=== PATIENT | female | born 1935 | race Caucasian/White ===

== ENCOUNTER 2017-12-04 13:33 | Inpatient (IN) | payer MEDICARE, BC ==
[2017-12-04] MEDS ORDERED: NS 0.9% 1000 ML* 1,000 ML IV ONE (14:08)
[2017-12-04 14:32] LABS: ABS Basophils 0.1 10^3/ul (0-0.2); ABS Eosinophils 0.1 10^3/ul (0-0.6); ABS Lymphocytes 0.9 10^3/ul (1.0-4.8); ABS Monocytes 0.7 10^3/ul (0-0.8); ABS Neutrophils 7.9 10^3/ul (1.5-7.7); ABS Nucleated RBC 0 10^3/ul; Eosinophil % 1.2 % (0-6); Hematocrit 46 % (35-47); Hemoglobin 15.5 g/dl (12.0-16.0); Lymphocyte % 9.3 % (25-47); Mean Corpuscular HGB Conc 34 g/dl (31-36); Mean Corpuscular Hemoglobin 30 pg (27-31); Mean Corpuscular Volume 89 fL (80-97); Mean Platelet Volume 8 um3 (7.4-10.4); Nucleated Red Blood Cells % 0.1; Platelet Count 163 10^3/ul (150-450); Red Blood Count 5.19 10^6/ul (4.0-5.4); Red Cell Distribution Width 15 % (10.5-15); White Blood Count 9.7 10^3/ul (3.5-10.8)
--- NOTE | 2017-12-04 14:54 | RAD ---
HISTORY: Headache, fall COMPARISONS: None TECHNIQUE: Multiple contiguous axial CT scans were obtained of the head without intravenous contrast. FINDINGS: HEMORRHAGE/INFARCT: There is no hemorrhage or acute infarct. MASSES/SHIFT: There is no mass or shift. EXTRA-AXIAL SPACES: There are no extra-axial fluid collections. SULCI AND VENTRICLES: The sulci and ventricles are normal in size and position for the patient's stated age. CEREBRUM: There are no focal parenchymal abnormalities. BRAINSTEM: There are no focal parenchymal abnormalities. CEREBELLUM: There are no focal parenchymal abnormalities. VESSELS: The vessels are grossly normal. PARANASAL SINUSES: The paranasal sinuses are clear. ORBITS: The orbits are unremarkable. BONES AND SOFT TISSUE: No bone or soft tissue abnormalities are noted. OTHER: None IMPRESSION: NO ACUTE INTRACRANIAL PATHOLOGY.
--- NOTE | 2017-12-04 14:54 | RAD ---
HISTORY: Weakness COMPARISONS: None VIEWS: 1: frontal portable view of the chest at 2:49 PM FINDINGS: LINES AND TUBES: None. CARDIOMEDIASTINAL SILHOUETTE: The cardiomediastinal silhouette is normal for portable technique. PLEURA: The costophrenic angles are sharp. No pleural abnormalities are noted. LUNG PARENCHYMA: The lungs are clear. ABDOMEN: The upper abdomen is clear. There is no subphrenic gas. BONES AND SOFT TISSUES: No bone or soft tissue abnormalities are noted. IMPRESSION: NO ACTIVE CARDIOPULMONARY DISEASE.
[2017-12-04] MEDS ORDERED: Ondansetron INJ* 2 MG/ML VIAL IV PRN (17:06)
[2017-12-04] MEDS ORDERED: NS 0.9% 1000 ML* 1,000 ML IV SCH (17:15)
[2017-12-04] MEDS: Acetaminophen TAB* 325 MG PO PRN ×2 (17:48→22:05)
[2017-12-04] MEDS: Digoxin TAB* 0.25 MG PO SCH (17:48)
[2017-12-04] MEDS: Diltiazem TAB* 30 MG PO SCH ×3 (17:48→23:25)
[2017-12-04 18:22] LABS: Urine Appearance Cloudy; Urine Blood Negative (Negative); Urine Color Yellow; Urine Ketones Trace (Negative); Urine Protein Negative (Negative); Urine Specific Gravity 1.013 (1.010-1.030); Urine Urobilinogen Negative (Negative)
[2017-12-04] MEDS: cefTRIAXone(*) 1 GM in NS 0.9% 50 ML* 50 ML IVPB SCH (19:41)
--- NOTE | 2017-12-04 20:24 | HP ---
CC: Denise Falcon NP * HISTORY AND PHYSICAL: DATE OF ADMISSION: 12/04/17 PRIMARY CARE PROVIDER: Denise Falcon NP ATTENDING PHYSICIAN WHILE IN THE HOSPITAL: Abdirahman Malin MD * (report dictated by Juancho Méndez NP). CHIEF COMPLAINT: Fall. HISTORY OF PRESENT ILLNESS: Ms. Dixon is an 82-year-old female patient, carries a history of AFib, hypothyroidism, hyperlipidemia, dementia, and a history of COPD. She comes in to our ER today. She says she has not been feeling well over the last couple of days. The who lives with her says that for the last couple of weeks, she has not been acting herself in the sense that she has been complaining of having this pressure near the anabaptism. She has been feeling congested. She has had sore throat. She has been coughing, dry cough, off and on. She just really has not been feeling well. She has been in increasing weakness. She has felt nauseous off and on, and she has just been more weak. She saw her primary a couple of days ago. According to the patient , they thought maybe she had a viral illness and they had instructed her to come back if she was not feeling better in a week. She has had decreased appetite the last couple of days. There has been no shortness of breath or chest pain, but today she was getting up to go to the bathroom, she felt nauseous and she got lightheaded and she fell. She did not pass out. She did not faint. She remembers the event. She says she just got weak and she could not stand and she had fallen down. She denied having any abdominal discomfort. No chest pain, shortness of breath, or palpitations. She just says over the last few weeks, she has not been feeling all that well. She came in to the ED. She was evaluated. It was noted that she had an elevated troponin of 0.06 and we were asked to evaluate for admission. PAST MEDICAL HISTORY: Significant for: 1. AFib. 2. Hypothyroid. 3. Hyperlipidemia. 4. Dementia. 5. COPD. PAST SURGICAL HISTORY: She has had right total hip arthroplasty. MEDICATIONS: Home medications include: 1. Lasix 40 mg daily. 2. Potassium 10 mEq p.o. daily. 3. Zetia 10 mg daily. 4. Diltiazem CD 120 mg p.o. daily. 5. Digoxin 0.25 mg daily. 6. Xarelto 20 mg p.o. daily. 7. Synthroid 125 mcg daily. ALLERGIES TO MEDICATIONS: Include no known drug allergies. FAMILY HISTORY: Her mother lived to the age of 93 at old age. Father had history of emphysema. SOCIAL HISTORY: She is a former smoker. She does not drink alcohol. She resides with her . Surrogate decision maker is her granddaughter, Precious. REVIEW OF SYSTEMS: She does admit to having chills, but there is no documented fever. She is not having any significant weight change. No double vision. No ear discharge. There has been rhinorrhea. There has been sore throat. There has been no thyroid enlargement. Denied any chest pain. No orthopnea. No nocturnal dyspnea. There has been no abdominal pain. There was some sort of nausea today, but no vomiting. No dysuria, no frequency. There was no loss of consciousness. No pruritus and no skin ulcerations. Review of 14 systems completed, all others negative. PHYSICAL EXAMINATION GENERAL: At this time, Mrs. Dixon is an 82-year-old female patient, she is sitting in the hospital bed. She does not appear to be in any acute distress. VITAL SIGNS: Blood pressure 122/88, pulse of 100, respirations 20, O2 sat 92%, temperature 98.0. HEENT: Head: Atraumatic, normocephalic. Eyes: EOMs intact. Sclerae anicteric, not pale. Throat: Oral mucosa appears to be dry. No oropharyngeal erythema. NECK: Supple. LUNGS: Clear to auscultation bilaterally. No wheezes, rales, or rhonchi. HEART: Sounds S1 and S2. Irregularly irregular rate. No murmurs, rubs, or gallops. ABDOMEN: Soft, flat, nontender. Bowel sounds were present. EXTREMITIES: Pulses were 2+ throughout. She had no peripheral edema. She is able to move all 4 extremities with 5/5 strength. NEUROLOGIC: The patient is awake, alert, and oriented x3. Tongue midline. Residential Aide were equal. She had no gross focal deficits. SKIN: Intact. DIAGNOSTIC STUDIES/LAB DATA: WBC 9.7, RBC of 5.19, hemoglobin of 15.5, hematocrit 46, and platelet count of 163,000. Sodium was 134, potassium 4.2, chloride 100, bicarb 26, BUN 12, creatinine 0.71, glucose 89, lactate 1, calcium 9.4, mag 1.9, total bili 0.5, AST 22, ALT 17, alk phos 51. Troponin 0.06. Albumin of 2.5. TSH was 3.17. Toxicology was negative for alcohol. She did have a chest x-ray obtained today, impression: No active cardiopulmonary disease. There was a brain CT obtained today, impression: No acute intracranial pathology. She had an EKG obtained today, impression: No previous EKG was noted for comparison, but today's EKG does show atrial fibrillation, rate of 108. No ST elevations. She had T wave inversions. She did have flattened T waves in V6 only. Old medical records were reviewed. ASSESSMENT AND PLAN: Mrs. Dixon is an 82-year-old female patient coming into the emergency department today with complaints of weakness and fall, on evaluation today there was concern, because of this we were asked to evaluate for admission. She will be admitted under observation status for: 1. Weakness. Again, at this point, I suspect she certainly may have a viral illness or underlying urinary tract infection, so we will check urine, get a flu swab. For the time being, we will hydrate her and continue with supportive care. We will continue to monitor closely. Should she spike a fever, I will get blood cultures and put her on broad-spectrum antibiotics. I did order a Physical Therapy consult. 2. Atrial fibrillation. Heart rate right now is 120, but she did not take her medications today, so I am going to get her on diltiazem immediate release while she is here in the hospital and then when she goes home, she can go back on the IR formulation. We will continue her Xarelto. We will continue her digoxin as well. We will check a digoxin level. 3. Indeterminate troponin. Etiology is unclear. She is not having any chest pain. This could just be demand ischemia from a possible viral illness, but we will trend these. If they continue to elevate, we will get Cardiology involved and check an echo. 4. Hyperlipidemia. Continue her Zetia therapy. 5. Chronic obstructive pulmonary disease. I have ordered p.r.n. albuterol. 6. History of dementia and memory loss. Continue supportive care. 7. Hypothyroidism. Continue with Synthroid. 8. DVT prophylaxis. She is on Xarelto. 9. Code status: Full code. 10. Fluids, electrolytes, and nutrition. She can have a heart-healthy diet. TIME SPENT: Time spent on admission was approximately 60 minutes, greater than half the time was spent [id number] with the patient obtaining my history of physical; the other half time was spent going over the plan of care with the patient and implementing plan of care. I did discuss the plan of care with my attending, Dr. Malin; he is in agreement. JUANCHO MÉNDEZ, SUJEY [id number]/[facility] #: [id number]
[2017-12-05] MEDS: Acetaminophen TAB* 325 MG PO PRN ×2 (03:30→21:22)
[2017-12-05] MEDS: Levothyroxine TAB* 125 MCG TAB PO SCH (05:07)
[2017-12-05] MEDS: Diltiazem TAB* 30 MG PO SCH ×4 (05:08→23:31)
[2017-12-05] MEDS: Albuterol 2.5 MG/3 ML NEB.SOL* (0.083%) INH PRN ×3 (05:30→22:53)
[2017-12-05 05:37] LABS: ABS Basophils 0.1 10^3/ul (0-0.2); ABS Eosinophils 0.1 10^3/ul (0-0.6); ABS Lymphocytes 1.2 10^3/ul (1.0-4.8); ABS Monocytes 0.7 10^3/ul (0-0.8); ABS Neutrophils 6.5 10^3/ul (1.5-7.7); ABS Nucleated RBC 0 10^3/ul; Eosinophil % 1.7 % (0-6); Hematocrit 48 % (35-47); Hemoglobin 16.1 g/dl (12.0-16.0); Lymphocyte % 14.3 % (25-47); Mean Corpuscular HGB Conc 34 g/dl (31-36); Mean Corpuscular Hemoglobin 30 pg (27-31); Mean Corpuscular Volume 90 fL (80-97); Mean Platelet Volume 8 um3 (7.4-10.4); Nucleated Red Blood Cells % 0.1; Platelet Count 189 10^3/ul (150-450); Red Blood Count 5.34 10^6/ul (4.0-5.4); Red Cell Distribution Width 15 % (10.5-15); White Blood Count 8.6 10^3/ul (3.5-10.8)
[2017-12-05 05:48] LABS: EGFR Non-African American 89.1 (>60); INR 1.1 (0.77-1.02)
[2017-12-05] MEDS: Digoxin TAB* 0.25 MG PO SCH (08:23)
[2017-12-05] MEDS: Rivaroxaban TAB(*) 20 MG TAB PO SCH (08:24)
[2017-12-05] MEDS: Ezetimibe TAB* 10 MG PO SCH (08:24)
--- NOTE | 2017-12-05 11:59 | PN ---
Subjective Date of Service: 12/05/17 Interval History: Ms. Dixon states that she feels well initially. However, nursing staff note that she is requiring 2-3L NC to maintain a SpO2 > 90%. She denies shortness of breath at rest but became very dyspneic with exertion. She denies chest pain. She has had what she describes as a likely viral illnes with headache, congestion, sore throat and generally feeling unwell for the past week or so. She confirms a history of COPD but quit smoking 30 years ago. Objective Active Medications: Albuterol (Ventolin 2.5 Mg/3 Ml Neb.Kimi*) 2.5 mg INH Q2H PRN Digoxin (Lanoxin Tab*) 0.25 mg PO DAILY [facility] Diltiazem HCl (Cardizem Tab*) 30 mg PO Q6HR [facility] Ezetimibe (Zetia Tab*) 10 mg PO DAILY [facility] Ceftriaxone Sodium 1 gm/ (Sodium Chloride) 50 mls @ 200 mls/hr IVPB Q24H [facility] Levothyroxine Sodium (Synthroid Tab*) 125 mcg PO 0600 [facility] Ondansetron HCl (Zofran Inj*) 4 mg IV Q6H PRN Rivaroxaban (Xarelto(*)) 20 mg PO DAILY [facility] Vital Signs: Temp Pulse Resp BP Pulse Ox 97.3 F 81 18 125/54 91 12/05/17 08:00 12/05/17 08:27 12/05/17 08:27 12/05/17 08:00 12/05/17 08:27 Oxygen Devices in Use Now: Nasal Cannula Appearance: Elderly female lying in bed in NAD Eyes: No Scleral Icterus Ears/Nose/Mouth/Throat: Mucous Membranes Moist Neck: Trachea Midline Respiratory: Symmetrical Chest Expansion and Respiratory Effort, Clear to Auscultation, - - Diminished bilaterally Cardiovascular: NL Sounds; No Murmurs; No JVD, No Edema Abdominal: NL Sounds; No Tenderness; No Distention Extremities: No Edema Skin: No Rash or Ulcers Neurological: Alert and Oriented x 3, NL Muscle Strength and Tone Nutrition: Taking PO's Result Diagrams: 12/05/17 05:23 12/05/17 05:23 Microbiology and Other Data: . Assess/Plan/Problems-Billing Assessment: Ms. Dixon is an 82 yo female with a PMH of afin, HTN, dementia, and COPD who was admitted on 12/04/17 after a fall at home with finding of UTI, now with SOB requiring 3L NC. - Patient Problems (1) UTI (urinary tract infection) Comment: - UA positive, await cultures. - Continue ceftriaxone. (2) Fall Comment: - Suspect secondary to weakness due to viral illness, UTI, and COPD exacerbation. - No injury sustained. (3) COPD (chronic obstructive pulmonary disease) Comment: - Patient SOB with SpO2 84% on room air with ambulation. - Lungs diminished, suspect COPD exacerbation. - Start solumedrol and transition to prednisone in AM. (4) Elevated troponin Comment: - Trops unchanged at 0.06. - Patient denies chest pain, EKG without evidence of ischemia. Suspect demand ischemia in setting of acute illness. (5) Afib Comment: - Rate controlled. - Continue diltiazem and digoxin. - Continue xarelto. (6) Hypertension Comment: - SBP 120-130s. - Continue diltiazem. (7) Hyperlipidemia Comment: - Continue zetia. (8) Hypothyroidism Comment: - Continue levothyroxine. (9) DVT prophylaxis Comment: - Xarelto. (10) Full code status Comment: Status and Disposition: Change from OBV to inpatient with need for additional night in hospital. Anticipate discharge to home when medically stable.
[2017-12-05] MEDS: methylPREDNISolone 125 MG* 2 ML VIAL IV SCH ×2 (14:22→21:01)
--- NOTE | 2017-12-05 16:10 | ED ---
Denice Crouch Gabriel, scribed for Cesar Betancourt MD on 12/04/17 at 1407 . Adult Trauma - HPI Summary HPI Summary: This patient is a 82 year old F BIBA to [facility] s/p fall that occurred [employer]. The patient rates the pain 3/10 in severity. Patient reports near syncope, dizziness , and ROWE. Patient denies cough, sneezing, LOC, myalgia, CP, ABD pain, SOB, and hematuria. Patient states she was walking around and began to feel weak and dizzy, then fell. She has had a cold for 3 days and an artificial left hip for 71 years. - History of Current Complaint Chief Complaint: EDDizziness Stated Complaint: FALL Time Seen by Provider: 12/04/17 13:59 Hx Obtained From: Patient Mechanism of Injury: Fall Loss of Consciousness: no loss of consciousness Onset/Duration: Still Present Onset of Pain: Minutes Onset Severity: Mild Current Severity: Mild Pain Intensity: 3 Pain Scale Used: 0-10 Numeric Location: Head Associated Signs & Symptoms: Positive: Negative - cough, sneezing, LOC, myalgia , CP, ABD pain, SOB, and hematuria., Other: - near syncope, dizziness, and ROWE - Allergy/Home Medications Allergies/Adverse Reactions: Allergies Allergy/AdvReac Type Severity Reaction Status Date / Time No Known Allergies Allergy Verified 12/04/17 14:37 Home Medications: Home Medications Digoxin TAB* [Lanoxin TAB*] 0.25 mg PO DAILY 12/04/17 [History Confirmed ] Diltiazem CD CAP* [Cardizem CD CAP*] 120 mg PO DAILY 12/04/17 [History Confirmed 12/04/17] Ezetimibe TAB* [Zetia TAB*] 10 mg PO DAILY 12/04/17 [History Confirmed 12/04/17] Furosemide TAB* [Lasix TAB*] 40 mg PO DAILY 12/04/17 [History Confirmed 12/04/17 ] Levothyroxine TAB* [Synthroid TAB*] 125 mcg PO DAILY 12/04/17 [History Confirmed 12/04/17] Potassium Chlor TAB* [Klor Con ER TAB*] 10 meq PO DAILY 12/04/17 [History Confirmed 12/04/17] Rivaroxaban TAB(*) [Xarelto 10 mg (*)] 20 mg PO DAILY 12/04/17 [History Confirmed 12/04/17] PMH/Surg Hx/FS Hx/Imm Hx Endocrine/Hematology History: Reports: Hx Thyroid Disease Cardiovascular History: Reports: Hx Atrial Fibrillation History: Denies: Hx Acute Renal Failure, Hx Benign Prostatic Hyperplasia Musculoskeletal History: Denies: Hx Arthritis, Hx Rheumatoid Arthritis Sensory History: Reports: Hx Contacts or Glasses, Hx Vision Problem Denies: Hx Cataracts, Hx Hearing Aid Opthamlomology History: Reports: Hx Contacts or Glasses Denies: Hx Legally Blind EENT History: Denies: Hx Deafness, Hx Hearing Problem Neurological History: Denies: Hx CVA, Hx Dementia, Hx Developmental Delay - Surgical History Surgery Procedure, Year, and Place: hip replacement 1946 Infectious Disease History: No Infectious Disease History: Denies: Traveled Outside the [place] in Last 30 Days - Family History Known Family History: Positive: Diabetes Negative: Cardiac Disease, Hypertension, Renal Disease, Respiratory Disease, Seizure Disorder, Blood Disorder - Social History Alcohol Use: None Substance Use Type: Reports: None Smoking Status (MU): Unknown if Ever Smoked Review of Systems Negative: Fever, Chills Negative: Erythema Negative: Sore Throat Negative: Chest Pain Respiratory: Negative - sneezing Negative: Shortness Of Breath, Cough Negative: Abdominal Pain, Vomiting, Nausea Negative: dysuria, hematuria Negative: Myalgia, Edema Negative: Rash Neurological: Negative - LOC , Other - dizziness and near syncope Positive: Headache, Weakness All Other Systems Reviewed And Are Negative: Yes Physical Exam - Summary Physical Exam Summary: Constitutional: Well-developed, Well-nourished, Alert, Cooperative Skin: Warm, Dry HENT: No Racoons eyes; No battles sign; No abrasion; No hemotympanum; Dentition are smooth; No dental trauma; No trismus. Contusion on left frontal scalp Eyes: EOM normal, PERRL Neck: Trachea is midline. No stridor; No JVD; No step off; No posterior cervical spine tenderness Cardio: Rhythm regular, rate normal Heart sounds normal; Intact distal pulses; The pedal pulses are 2+ and symmetric. Radial pulses are 2+ and symmetric. Pulmonary/Chest wall: Effort normal; Breath sounds normal; Equal chest rise; No flail segment; No rib tenderness; No sternal tenderness Abd: Soft, Appearance normal. No distension; No tenderness; No palpable pulsatile mass; No Cullens sign; No Lockwood-Turners sign Musculoskeletal: Full ROM and no tenderness at hips, ankles, shoulders, elbows and knees; No joint swelling; No vertebral body tenderness; No paraspinal tenderness; No step off or deformity of the spine; Pelvis is stable to lateral compression and rock Neuro: Alert, Oriented x3, Strength 5/5 all extremities. : No blood at urethral meatus Psych: Mood and affect Normal Triage Information Reviewed: Yes Vital Signs On Initial Exam: Initial Vitals Temp Pulse Resp BP Pulse Ox 98.5 F 77 20 107/71 92 12/04/17 13:55 12/04/17 13:55 12/04/17 13:55 12/04/17 13:55 12/04/17 13:55 Vital Signs Reviewed: Yes - Parul Coma Scale Coma Scale Total: 15 Diagnostics - Vital Signs Vital Signs Temp Pulse Resp BP Pulse Ox 12/04/17 13:55 98.5 F 77 20 107/71 92 - Laboratory Result Diagrams: 12/04/17 14:23 12/04/17 14:23 Lab Statement: Any lab studies that have been ordered have been reviewed, and results considered in the medical decision making process. - Radiology CXR Radiology Interpretation Completed By: Radiologist - NO ACTIVE CARDIOPULMONARY DISEASE. ED physician has reviewed this radiology report. - CT CT Brain CT Interpretation Completed By: Radiologist - NO ACUTE INTRACRANIAL PATHOLOGY. ED physician has reviewed this radiology report. 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 The patient rates the pain 3/10 in severity. Patient reports near syncope, dizziness, and ROWE. Patient denies cough, sneezing, LOC, myalgia, CP, ABD pain, SOB, and hematuria. Patient states she was walking around and began to feel weak and dizzy, then fell. She has had a cold for 3 days and an artificial left hip for 71 years. CXR reveals, per radiologist, NO ACTIVE CARDIOPULMONARY DISEASE. CT Brain reveals, per radiologist, NO ACUTE INTRACRANIAL PATHOLOGY. An EKG reveals atrial fibrillation. Test results with no significant abnormalities except for troponin of .06. In the ED course the patient was given IV fluids. We discussed patient care with Dr. Malin and they accepted the patient for admission. Patient will be admitted. The patient is agreeable with this plan. - Diagnoses Provider Diagnoses: Syncope, near, Closed head injury, Elevated troponin - Physician Notifications Discussed Care Of Patient With: Oscar Malin Time Discussed With Above Provider: 13:15 Instructed by Provider To: Admit As Inpatient Discharge - Discharge Plan Condition: Fair Disposition: ADMITTED TO [facility] The documentation as recorded by the Denice amador Gabriel accurately reflects the service I personally performed and the decisions made by , Cesar Betancourt MD.
[2017-12-05] MEDS: cefTRIAXone(*) 1 GM in NS 0.9% 50 ML* 50 ML IVPB SCH (21:01)
[2017-12-06] MEDS: Diltiazem TAB* 30 MG PO SCH ×2 (05:17→12:12)
[2017-12-06] MEDS: Levothyroxine TAB* 125 MCG TAB PO SCH (05:17)
[2017-12-06] MEDS: Rivaroxaban TAB(*) 20 MG TAB PO SCH (07:45)
[2017-12-06] MEDS: Ezetimibe TAB* 10 MG PO SCH (07:45)
[2017-12-06] MEDS: Digoxin TAB* 0.25 MG PO SCH (07:45)
[2017-12-06] MEDS: Albuterol 2.5 MG/3 ML NEB.SOL* (0.083%) INH PRN (07:50)
[2017-12-06] MEDS ORDERED: predniSONE TAB* 20 MG PO SCH (09:00)
[2017-12-06 11:51] VITALS: BP 142/74
--- NOTE | 2017-12-06 13:18 | PN ---
Progress Note - Progress Note Date of Service: 12/06/17 Note: Time spent on discharge 45 minutes.
--- NOTE | 2017-12-06 13:18 | PN ---
Progress Note - Progress Note Date of Service: 12/06/17 Note: O2 sat 86=87% on RA by me.
--- NOTE | 2017-12-06 13:22 | DCNOTE ---
Subjective Date of Service: 12/06/17 Interval History: No c/o, anxious to go home. Objective Active Medications: Acetaminophen (Tylenol Tab*) 650 mg PO Q4H PRN PRN Reason: FEVER/PAIN Last Admin: 12/05/17 21:22 Dose: 650 mg Albuterol (Ventolin 2.5 Mg/3 Ml Neb.Kimi*) 2.5 mg INH Q2H PRN PRN Reason: SOB/WHEEZING Last Admin: 12/06/17 07:50 Dose: 2.5 mg Digoxin (Lanoxin Tab*) 0.25 mg PO DAILY [facility] Last Admin: 12/06/17 07:45 Dose: 0.25 mg Diltiazem HCl (Cardizem Tab*) 30 mg PO Q6HR [facility] Last Admin: 12/06/17 12:12 Dose: 30 mg Ezetimibe (Zetia Tab*) 10 mg PO DAILY [facility] Last Admin: 12/06/17 07:45 Dose: 10 mg Levothyroxine Sodium (Synthroid Tab*) 125 mcg PO 0600 [facility] Last Admin: 12/06/17 05:17 Dose: 125 mcg Ondansetron HCl (Zofran Inj*) 4 mg IV Q6H PRN PRN Reason: NAUSEA Prednisone (Deltasone Tab*) 40 mg PO DAILY [facility] Last Admin: 12/06/17 07:45 Dose: 40 mg Rivaroxaban (Xarelto(*)) 20 mg PO DAILY [facility] Last Admin: 12/06/17 07:45 Dose: 20 mg Vital Signs - 8 hr 12/06/17 12/06/17 12/06/17 07:39 07:45 08:00 Temperature 97.8 F Pulse Rate 99 99 Respiratory 26 24 Rate Blood Pressure 146/75 (mmHg) O2 Sat by Pulse 95 Oximetry 12/06/17 11:31 Temperature 97.7 F Pulse Rate 94 Respiratory 20 Rate Blood Pressure 142/74 (mmHg) O2 Sat by Pulse 95 Oximetry Oxygen Devices in Use Now: None Appearance: Alert, partly up in bed. In good spirits. Looks comfortable. Neck: NL Appearance and Movements; NL JVP, No Thyroid Enlargement, Masses Respiratory: Symmetrical Chest Expansion and Respiratory Effort, Clear to Auscultation, Clear to Percussion Extremities: No Edema, No Clubbing, Cyanosis, - Skin: No Rash or Ulcers, No Nodules or Sclerosis, - Neurological: Alert and Oriented x 3, NL Sensation Result Diagrams: 12/05/17 05:23 12/05/17 05:23 Microbiology and Other Data: . Assess/Plan/Problems-Billing Assessment: Ms. Dixon is an 82 yo female with a PMH of afin, HTN, dementia, and COPD who was admitted on 12/04/17 after a fall at home with finding of UTI, now with SOB requiring 3L NC. - Patient Problems (1) COPD (chronic obstructive pulmonary disease) Current Visit: Yes Status: Acute Code(s): J44.9 - CHRONIC OBSTRUCTIVE PULMONARY DISEASE, UNSPECIFIED SNOMED Code(s): 02517976 Comment: O2 sat 86-87% on RA by me. Finish prednison taper at home. Fup her PCP. (2) Fall Current Visit: Yes Status: Acute Comment: - Suspect secondary to weakness due to viral illness, UTI, and COPD exacerbation. - No injury sustained. Multiple ecchymoses noted. (3) Hypothyroidism Current Visit: Yes Status: Acute Code(s): E03.9 - HYPOTHYROIDISM, UNSPECIFIED SNOMED Code(s): 76239508 Comment: - Continue levothyroxine. TSH wnl 12/04/17. (4) Hypertension Current Visit: Yes Status: Acute Code(s): I10 - ESSENTIAL (PRIMARY) HYPERTENSION SNOMED Code(s): 80667419 Comment: - SBP 120-130s. - Continue diltiazem. (5) Afib Current Visit: Yes Status: Acute Code(s): I48.91 - UNSPECIFIED ATRIAL FIBRILLATION SNOMED Code(s): 83856020 Comment: - Rate controlled. - Continue diltiazem and digoxin. - Continue xarelto. (6) UTI (urinary tract infection) Current Visit: Yes Status: Acute Comment: C&S mixed zo. No further antibiotics for now. Status and Disposition: Discharge now. Fup Dr. Falcon.
--- NOTE | 2017-12-07 01:28 | DS ---
CC: Denise Falcon NP DISCHARGE SUMMARY: DATE OF ADMISSION: 12/05/17 DATE OF DISCHARGE: 12/06/17 HISTORY OF PRESENT ILLNESS: This 82-year-old woman presented after a fall. She had been feeling danial ewhat ill for a few days. She had a sore throat and had some cough. She is a little weak. She got up to go to the bathroom and felt nauseated and lightheaded and fell. She did not lose consciousness and remembers falling. There is no chest pain, shortness of breath or palpitations. She was admitted to a monitored bed. I note she has persistent atrial fibrillation and is rate contr olled. She is anticoagulated for this. She was thought to possibly have a urinary tract infection and was given antibiotics. The culture ca me back mixed zo and I have stopped her antibiotics. She felt well; however, she was placed on pre dnisone for COPD. At the day of discharge, she was 86% to 87% O2 saturation on room air. She will h ave home oxygen arranged. FINAL DIAGNOSES: 1. Chronic obstructive pulmonary disease. 2. Fall. 3. Hypothyroidism. 4. Hypertension. 5. Atrial fibrillation. DISCHARGE MEDICATIONS: 1. Prednisone 10 mg taper from 3 to 0 over 3 days. 2. Ezetimibe 10 mg daily. 3. Diltiazem CD 120 mg daily. 4. Digoxin 0.25 mg daily. 5. Rivaroxaban 20 mg daily. 6. Levothyroxine 125 mcg every day. I have stopped the patient's potassium and furosemide prescriptions. [id number]/[facility] #: [id number]
== END 2017-12-06 15:45 | disposition home or self-care (01) | DRG 192 ==
LOC: ED 13:33 → MEDTELE 15:49 → OBSVTOIN 12-05 14:43
PROVIDERS: ADMIT Internal Medicine; ATTEND Internal Medicine
DX: J44.1 Chronic obstructive pulmonary disease with (acute) exacerbation (principal); I48.91 Unspecified atrial fibrillation; F03.90 Unspecified dementia, unspecified severity, without behavioral disturbance, psychotic disturbance, mood disturbance, and anxiety; E78.5 Hyperlipidemia, unspecified; I10 Essential (primary) hypertension; E03.9 Hypothyroidism, unspecified; Z96.641 Presence of right artificial hip joint; Z82.5 Family history of asthma and other chronic lower respiratory diseases; Z83.3 Family history of diabetes mellitus; Z87.891 Personal history of nicotine dependence
CPT/HCPCS: 36415; 70450; 71045; 80048; 80053; 80162; 80320; 81003; 81015; 83605; 83735; 84443; 84484; 85025; 85610; 87086; 87502; 93005; 94640; 94760; A9270-GY; G0378; G0480; G8978-GP-CI; G8979-GP-CH; G8980-GP-CH; J0696; J2930; J7512

== ENCOUNTER 2017-12-08 08:11 | Observation (INO) | payer MEDICARE, BC ==
[2017-12-08 10:11] LABS: ABS Basophils 0 10^3/ul (0-0.2); ABS Eosinophils 0.1 10^3/ul (0-0.6); ABS Lymphocytes 1.1 10^3/ul (1.0-4.8); ABS Neutrophils 8.8 10^3/ul (1.5-7.7); ABS Nucleated RBC 0.1 10^3/ul; Eosinophil % 0.5 % (0-6); Hematocrit 49 % (35-47); Hemoglobin 16.4 g/dl (12.0-16.0); Lymphocyte % 9.9 % (25-47); Mean Corpuscular HGB Conc 34 g/dl (31-36); Mean Corpuscular Hemoglobin 30 pg (27-31); Mean Corpuscular Volume 89 fL (80-97); Mean Platelet Volume 8 um3 (7.4-10.4); Nucleated Red Blood Cells % 0.7; Platelet Count 199 10^3/ul (150-450); Red Blood Count 5.47 10^6/ul (4.0-5.4); Red Cell Distribution Width 15 % (10.5-15); White Blood Count 10.9 10^3/ul (3.5-10.8)
--- NOTE | 2017-12-08 10:20 | RAD ---
INDICATION: Weakness COMPARISON: December 04, 2017 TECHNIQUE: Noncontrast axial source images were acquired from the skull base to the vertex. FINDINGS: Ventricles/sulci: There is mild age-related cortical atrophy with compensatory dilatation of the CSF spaces. Brain parenchyma: There is mild age-related periventricular and subcortical white matter change compatible with chronic ischemia. Intracranial hemorrhage:None. Extra-axial spaces: There are no abnormal extra axial fluid collections or evidence of extra-axial mass. Calvarium: There is no calvarial fracture or other calvarial abnormality. Scalp: There is no evidence of scalp or extracalvarial soft tissue abnormality. Paranasal sinuses/mastoid: The paranasal sinuses and mastoid air cells are clear. Other: None. IMPRESSION: No acute intracranial findings or interval change since the recent December 04, 2017 examination
[2017-12-08 10:26] LABS: INR 1.73 (0.77-1.02)
[2017-12-08 10:30] LABS: EGFR Non-African American 69.8 (>60)
[2017-12-08] MEDS ORDERED: Iohexol 350* (CONTRAST) 500 ML MDV IV ONE (10:49)
[2017-12-08] MEDS ORDERED: NS 0.9% 1000 ML* 1,000 ML IV ONE (10:53)
[2017-12-08] MEDS ORDERED: Rivaroxaban TAB(*) 20 MG TAB PO SCH (12:00)
[2017-12-08] MEDS ORDERED: Digoxin TAB* 0.25 MG PO SCH (12:00)
[2017-12-08] MEDS ORDERED: Furosemide TAB* 40 MG PO SCH (12:00)
--- NOTE | 2017-12-08 12:18 | RAD ---
INDICATION: Left upper extremity weakness. COMPARISON: Versus new prior CT of the brain from December 08, 2017. TECHNIQUE: A CT angiogram of the head and neck was performed following intravenous injection of 80 ml of Omnipaque 350 nonionic contrast. Contiguous axial sections were obtained from the thoracic inlet through the skull vertex. Images were reconstructed in the coronal and sagittal planes and in a 3-D volume rendered format. The distal cervical internal carotid artery diameter is used as the denominator for stenosis measurement. FINDINGS: RIGHT CAROTID: The common and internal carotid arteries appear patent without evidence for hemodynamically significant stenosis. There is mild calcific plaque present within the carotid bulb and proximal internal carotid artery. LEFT CAROTID: The common and internal carotid arteries appear patent without evidence for hemodynamically significant stenosis. There is mild calcific plaque present within the carotid bulb and proximal internal carotid artery. VERTEBRALS: The vertebral arteries appear codominant without evidence for high-grade stenosis. CTA BRAIN: The internal carotid, anterior and middle cerebral arteries appear patent without evidence for high-grade stenosis or occlusion. The vertebral, basilar and posterior cerebral arteries appear patent without evidence for high-grade stenosis or occlusion. No gross focal perfusion abnormalities are seen. No aneurysm or vascular malformation is seen. NECK: No significant enlarged lymph nodes are seen within the neck. The thyroid, parotid and submandibular glands appear to be within normal limits. There is moderate centrilobular emphysematous change present. There is an infiltrate in the left upper lobe which is partially visualized on this study. There is a pleural-based density present medially in the left upper lobe which is partially calcified suspicious for a pleural-based mass. This measures 2.1 x 1.2 cm in size. There is moderate centrilobular emphysematous change present and a small right pleural effusion. The paranasal sinuses and mastoid air cells appear clear The results of this exam were called to the referring clinician. IMPRESSION: 1. NO EVIDENCE FOR HEMODYNAMICALLY SIGNIFICANT CAROTID STENOSIS. 2. NO EVIDENCE FOR LARGE VESSEL INTRACRANIAL THROMBUS. 3. LEFT UPPER LOBE INFILTRATE, POSSIBLE PLEURAL-BASED MASS IN THE LEFT UPPER LOBE AND SMALL RIGHT PLEURAL EFFUSION. RECOMMEND A CT OF THE CHEST FOR FURTHER EVALUATION. CPT II Codes: 3100F
[2017-12-08] MEDS ORDERED: Levofloxacin 750 MG IVPREMIX(* 750 MG/150 ML BAG IVPB ONE (12:19)
[2017-12-08 12:51] LABS: Urine Appearance Clear; Urine Blood Negative (Negative); Urine Color Yellow; Urine Ketones Negative (Negative); Urine Protein Negative (Negative); Urine Specific Gravity 1.035 (1.010-1.030); Urine Urobilinogen Negative (Negative)
--- NOTE | 2017-12-08 13:13 | RAD ---
HISTORY: Lung mass COMPARISONS: CTA of the head and neck dated December 08, 2017 TECHNIQUE: Multiple contiguous axial CT scans of the chest were obtained without intravenous contrast. Coronal and sagittal multiplanar reformations are also submitted for review. FINDINGS: NECK AND THYROID: The lower neck and thyroid are unremarkable. CHEST WALL: There is no lower cervical, axillary, or supraclavicular lymphadenopathy by size criteria. HEART AND PERICARDIUM: The heart is unremarkable. AORTA AND PULMONARY VASCULATURE: There is calcification of the thoracic aorta. The pulmonary vasculature is unremarkable. MEDIASTINUM: There is no mediastinal lymphadenopathy by size criteria. REBECCA: There is no hilar lymphadenopathy by size criteria. AIRWAY AND ESOPHAGUS: The airway is unremarkable, without endobronchial filling defect. The esophagus is grossly normal. LUNG PARENCHYMA: There is interlobular septal thickening with diffuse ground glass opacification of the left upper lobe. Additionally, there is a pleural-based mass posterior to the aortic arch on the left corresponding to the lesion noted on previous CT measuring 1.6 cm in size. Additionally, there is a left perihilar mass measuring approximately 4.4 x 3.9 cm transversely. There is centrilobular emphysematous change. PLEURA: Small left pleural effusion UPPER ABDOMEN: The upper abdomen is unremarkable. BONES AND SOFT TISSUES: Mild degenerative changes are noted OTHER: None. IMPRESSION: 1. THERE IS A 4.4 CENTIMETER PERIHILAR MASS ON THE LEFT CONCERNING FOR NEOPLASM. 2. A SECOND LESION IS NOTED POSTERIOR TO THE AORTIC ARCH MEASURING 1.6 CM. 3. THERE IS INTERLOBULAR SEPTAL THICKENING WITH GROUNDGLASS OPACIFICATION OF THE LEFT UPPER LUNG. WHILE THIS MAY REPRESENT AN INFECTIOUS OR INFLAMMATORY PROCESS, OR POSSIBLY ASYMMETRIC PULMONARY EDEMA, GIVEN THE PRESENCE OF A LUNG MASS, THIS MAY ALSO REPRESENT LYMPHANGITIC SPREAD OF TUMOR. 4. EMPHYSEMA. 5. SMALL LEFT PLEURAL EFFUSION.
[2017-12-08] MEDS: Atorvastatin* 40 MG TAB PO SCH ×2 (14:19→18:26)
[2017-12-08] MEDS: Diltiazem CD CAP* 120 MG PO SCH (14:19)
[2017-12-08] MEDS: Ezetimibe TAB* 10 MG PO SCH (16:00)
[2017-12-08] MEDS: Levothyroxine TAB* 125 MCG TAB PO SCH (16:00)
[2017-12-08] MEDS ORDERED: Metoprolol Tartrate IV* 1 MG/ML 5 ML VIAL IV PRN (16:31)
[2017-12-08] MEDS ORDERED: Potassium Chlor TAB* 20 MEQ TAB.ER PO ONE (16:33)
--- NOTE | 2017-12-08 17:29 | ED ---
George Crouch Angela, scribed for Junior zSymanski MD on 12/08/17 at 0852 . Neurological HPI - HPI Summary HPI Summary: This pt is a 82 y/o female presenting to [facility] c/o left hand weakness upon waking up this morning at approx 06:15. Pt notes she felt well yesterday prior to going to sleep. Pt reports she had a fall last week, was admitted to [facility] and was discharged 2 days ago. She states that since her discharge, pt does not feel as strong. Pt went from using her cane (prior to admission) to using a walker now (after discharge). - History of Current Complaint Chief Complaint: EDNeurologicalDeficit Stated Complaint: WEAKNESS IN LT HAND Time Seen by Provider: 12/08/17 08:34 Hx Obtained From: Patient Onset/Duration: Started hours ago, Still Present Current Severity: Moderate Neurological Deficit Location: LUE Pain Intensity: 0 Character: Weak - LUE Aggravating: Nothing Alleviating: Nothing Associated Signs and Symptoms: Positive: Weakness - generalized - Additional Pertinent History Primary Care Physician: RAMONITA - Allergy/Home Medications Allergies/Adverse Reactions: Allergies Allergy/AdvReac Type Severity Reaction Status Date / Time No Known Allergies Allergy Verified 12/08/17 08:46 Home Medications: Home Medications Furosemide TAB* [Lasix TAB*] 40 mg PO DAILY 12/08/17 [History Confirmed 12/08/17 ] Potassium Chlor TAB* [Klor Con ER TAB*] 10 meq PO DAILY 12/08/17 [History Confirmed 12/08/17] PMH/Surg Hx/FS Hx/Imm Hx Endocrine/Hematology History: Reports: Hx Thyroid Disease Cardiovascular History: Reports: Hx Atrial Fibrillation Comment Only: Other Cardiovascular Problems/Disorders - AFib Respiratory History: Reports: Hx Chronic Obstructive Pulmonary Disease (COPD) History: Denies: Hx Acute Renal Failure, Hx Benign Prostatic Hyperplasia Musculoskeletal History: Denies: Hx Arthritis, Hx Rheumatoid Arthritis Comment Only: Other Musculoskeletal History - Right leg 3 inches shorter than left leg Sensory History: Reports: Hx Contacts or Glasses, Hx Vision Problem Denies: Hx Cataracts, Hx Legally Blind, Hx Deafness, Hx Hearing Aid, Hx Hearing Problem Opthamlomology History: Reports: Hx Contacts or Glasses, Hx Vision Problem Denies: Hx Cataracts, Hx Legally Blind Neurological History: Denies: Hx CVA, Hx Dementia, Hx Developmental Delay - Surgical History Surgery Procedure, Year, and Place: hip replacement 1946 Infectious Disease History: No Infectious Disease History: Denies: Traveled Outside the [place] in Last 30 Days - Family History Known Family History: Positive: Diabetes Negative: Cardiac Disease, Hypertension, Renal Disease, Respiratory Disease, Seizure Disorder, Blood Disorder - Social History Alcohol Use: Rare Alcohol Amount: celebration Substance Use Type: Reports: None Smoking Status (MU): Former Smoker Review of Systems Negative: Fever, Chills ENT: Negative Cardiovascular: Negative Respiratory: Negative Gastrointestinal: Negative Neurological: Other - generalized weakness Positive: Weakness - left hand All Other Systems Reviewed And Are Negative: Yes Physical Exam - Summary Physical Exam Summary: VITAL SIGNS: Reviewed. GENERAL: Patient is a well-developed and nourished female who is lying comfortable in the stretcher. Patient is not in any acute respiratory distress. HEAD AND FACE: No signs of trauma. No ecchymosis, hematomas or skull depressions. No sinus tenderness. EYES: PERRLA, EOMI x 2, No injected conjunctiva, no nystagmus. EARS: Hearing grossly intact. Ear canals and tympanic membranes are within normal limits. MOUTH: Oropharynx within normal limits. NECK: Supple, trachea is midline, no adenopathy, no JVD, no carotid bruit, no c- spine tenderness, neck with full ROM. CHEST: Symmetric, no tenderness at palpation LUNGS: Clear to auscultation bilaterally. No wheezing or crackles. CVS: Regular rate and rhythm, S1 and S2 present, no murmurs or gallops appreciated. ABDOMEN: Soft, non-tender. No signs of distention. No rebound no guarding, and no masses palpated. Bowel sounds are normal. EXTREMITIES: FROM in all major joints, no edema, no cyanosis or clubbing. NEURO: Alert and oriented x 3. Speech is normal and follows commands. Pt has left upper extremity weakness. SKIN: Dry and warm Triage Information Reviewed: Yes Vital Signs On Initial Exam: Initial Vitals Temp Pulse Resp BP Pulse Ox 97.5 F 73 20 145/94 87 12/08/17 08:11 12/08/17 08:11 12/08/17 08:11 12/08/17 08:11 12/08/17 08:11 Vital Signs Reviewed: Yes - [place] Coma Scale Best Eye Response: 4 - Spontaneous Best Motor Response: 6 - Obeys Commands Best Verbal Response: 5 - Oriented Coma Scale Total: 15 Diagnostics - Vital Signs Vital Signs Temp Pulse Resp BP Pulse Ox 12/08/17 08:11 97.5 F 73 20 145/94 87 - Laboratory Lab Results: Lab Results 12/08/17 12/08/17 12/08/17 Range/Units 09:49 09:49 09:49 WBC 10.9 H (3.5-10.8) 10^3/ul RBC 5.47 H (4.0-5.4) 10^6/ul Hgb 16.4 H (12.0-16.0) g/dl Hct 49 H (35-47) % MCV 89 (80-97) fL MCH 30 (27-31) pg MCHC 34 (31-36) g/dl RDW 15 (10.5-15) % Plt Count 199 (150-450) 10^3/ul MPV 8 (7.4-10.4) um3 Neut % (Auto) 80.5 (38-83) % Lymph % (Auto) 9.9 L (25-47) % [place] % (Auto) 8.9 (1-9) % Eos % (Auto) 0.5 (0-6) % Baso % (Auto) 0.2 (0-2) % Absolute Neuts (auto) 8.8 H (1.5-7.7) 10^3/ul Absolute Lymphs (auto) 1.1 (1.0-4.8) 10^3/ul Absolute Monos (auto) 1.0 H (0-0.8) 10^3/ul Absolute Eos (auto) 0.1 (0-0.6) 10^3/ul Absolute Basos (auto) 0 (0-0.2) 10^3/ul Absolute Nucleated RBC 0.1 10^3/ul Nucleated RBC % 0.7 INR (Anticoag Therapy) 1.73 H (0.77-1.02) APTT 28.4 (26.0-36.3) seconds Sodium (133-145) mmol/L Potassium (3.5-5.0) mmol/L Chloride (101-111) mmol/L Carbon Dioxide (22-32) mmol/L Anion Gap (2-11) mmol/L BUN (6-24) mg/dL Creatinine (0.51-0.95) mg/dL Est GFR ( Amer) (>60) Est GFR (Non-Af Amer) (>60) BUN/Creatinine Ratio (8-20) Glucose (70-100) mg/dL Lactic Acid (0.5-2.0) mmol/L Calcium (8.6-10.3) mg/dL Magnesium Total Bilirubin (0.2-1.0) mg/dL AST (13-39) U/L ALT (7-52) U/L Alkaline Phosphatase (34-104) U/L Troponin I (<0.04) ng/mL Total Protein (6.4-8.9) g/dL Albumin (3.2-5.2) g/dL Globulin (2-4) g/dL Albumin/Globulin Ratio (1-3) Blood Type O Positive Antibody Screen Negative 12/08/17 12/08/17 Range/Units 09:49 09:49 WBC (3.5-10.8) 10^3/ul RBC (4.0-5.4) 10^6/ul Hgb (12.0-16.0) g/dl Hct (35-47) % MCV (80-97) fL MCH (27-31) pg MCHC (31-36) g/dl RDW (10.5-15) % Plt Count (150-450) 10^3/ul MPV (7.4-10.4) um3 Neut % (Auto) (38-83) % Lymph % (Auto) (25-47) % [place] % (Auto) (1-9) % Eos % (Auto) (0-6) % Baso % (Auto) (0-2) % Absolute Neuts (auto) (1.5-7.7) 10^3/ul Absolute Lymphs (auto) (1.0-4.8) 10^3/ul Absolute Monos (auto) (0-0.8) 10^3/ul Absolute Eos (auto) (0-0.6) 10^3/ul Absolute Basos (auto) (0-0.2) 10^3/ul Absolute Nucleated RBC 10^3/ul Nucleated RBC % INR (Anticoag Therapy) (0.77-1.02) APTT (26.0-36.3) seconds Sodium 139 (133-145) mmol/L Potassium 3.6 (3.5-5.0) mmol/L Chloride 99 L (101-111) mmol/L Carbon Dioxide 32 (22-32) mmol/L Anion Gap 8 (2-11) mmol/L BUN 25 H (6-24) mg/dL Creatinine 0.79 (0.51-0.95) mg/dL Est GFR ( Amer) 89.8 (>60) Est GFR (Non-Af Amer) 69.8 (>60) BUN/Creatinine Ratio 31.6 H (8-20) Glucose 74 (70-100) mg/dL Lactic Acid 1.1 (0.5-2.0) mmol/L Calcium 10.0 (8.6-10.3) mg/dL Magnesium Pending Total Bilirubin 0.90 (0.2-1.0) mg/dL AST 47 H (13-39) U/L ALT 49 (7-52) U/L Alkaline Phosphatase 56 (34-104) U/L Troponin I 0.11 H* (<0.04) ng/mL Total Protein 7.0 (6.4-8.9) g/dL Albumin 4.0 (3.2-5.2) g/dL Globulin 3.0 (2-4) g/dL Albumin/Globulin Ratio 1.3 (1-3) Blood Type Antibody Screen Result Diagrams: 12/08/17 09:49 12/08/17 09:49 Lab Statement: Any lab studies that have been ordered have been reviewed, and results considered in the medical decision making process. - CT Brain CT CT Interpretation: No Acute Changes - IMPRESSION: No acute intracranial findings or interval change since the recent December 04, [address] Szymanski has reviewed this radiology report. CT Interpretation Completed By: Radiologist CTA head/neck CT Interpretation: No Acute Changes - IMPRESSION: 1. No evidence for hemodynamically significant carotid stenosis. 2. No evidence for large vessel intracranial thrombus. 3. Left upper lobe infiltrate, possible pleural-based mass in the left upper lobe and small right pleural effusion. Recommend a CT of the chest for further evaluation. Dr. Szymanski has reviewed this radiology report. CT Interpretation Completed By: Radiologist - EKG 09:35 Cardiac Rate: NL EKG Rhythm: Atrial Fibrillation - at 76 bpm EKG Interpretation: No ST elevatoin. T wave inversion in II, III, V4, V6. EKG Comparison: No Significant Change - similar to prior EKG done on 12/05/17. NIH Scale - NIH Scale Level of Consciousness: Alert/Keenly Responsive Ask Patient the Month and His/Her Age: Both Correct Ask Pt to Open/Close Eyes and Packaging Associate/Release Non-Paretic Hand: Both Correctly Best Gaze (Only Horizontal Eye Movement): Normal Visual Field Testing: No Visual Loss Facial Paresis-Pt to Smile & Close Eyes or Grimace Symmetry: Normal/Symmetrical Motor Function - Right Arm: No Drift-Holds 10 Seconds Motor Function - Left Arm: Drifts LT 10 seconds Motor Function - Right Leg: No Drift-Holds 10 Seconds Motor Function - Left Leg: No Drift-Holds 10 Seconds Limb Ataxia-Must be out of Proportion to Weakness Present: Absent Sensory (Use Pinprick to Test Arms/Legs/Trunk/Face): Normal Best Language (Describe Picture, Name Items): No Aphasia Dysarthria (Read Several Words): Normal Extinction and Inattention: No Abnormality Total Score: 1 Course/Dx - Course Course Of Treatment: This pt is a 82 y/o female presenting to [facility] c/o left hand weakness upon waking up this morning at approx 06:15. Pt notes she felt well yesterday prior to going to sleep. Pt reports she had a fall last week, was admitted to [facility] and was discharged 2 days ago. She states that since her discharge, pt does not feel as strong. Pt went from using her cane (prior to admission) to using a walker now (after discharge). Test results show WBC of 10.9, H and H is elevated possibly secondary to dehydration. Troponin is elevated and will r/o ACS. Head CT shows no acute intracranial findings or interval change since the recent December 04, 2017 examination. Since the pt has a slight weakness in LUE, I discussed pt care with Dr. Titus, neurologist , who recommends the pt to be admitted for further work up and management. The pt is not a candidate for tPA since her symptoms started yesterday. I discussed the case with Dr. Malin, hospitalist, who accepted the pt for admission. Pt is hemodynamically stable, alert and oriented x3. - Diagnoses Provider Diagnoses: LUE weakness, rule out ischemic CVA, Elevated troponin - Physician Notifications Discussed Care Of Patient With: Miki Titus Time Discussed With Above Provider: 10:30 Instructed by Provider To: Other - I discussed pt care with Dr. Titus, neurologist, who recommends to order a CTA head and admit the pt for further management and work up. [10:37] I spoke with Dr. Malin, hospitalist, who has agreed to admit the pt. Discharge - Discharge Plan Condition: Stable Disposition: ADMITTED TO [facility] documentation as recorded by the George amador Angela accurately reflects the service I personally performed and the decisions made by me, Junior Szymanski MD.
--- NOTE | 2017-12-08 20:34 | RAD ---
Indication: Left upper extremity weakness. Image sequences: Sagittal and axial T1, axial T2, FLAIR, diffusion and susceptibility weighted images of the brain were obtained. Ventricular structures are midline. No midline shift is noted. There is no definite intracranial mass or hemorrhage. There are areas of restriction involving the right frontal lobe in the steinberg matter. There is also additional steinberg matter infarct involving the right posterior parietal lobe. These may represent embolic phenomenon. The left cerebral hemisphere demonstrates no restriction of diffusion. No susceptibility artifact is noted. Areas of white matter signal abnormality are noted consistent with chronic ischemic White matter change. Mastoid air cells and paranasal sinuses are otherwise unremarkable. The orbits are grossly unremarkable. IMPRESSION: Scattered cortical areas of restriction of diffusion is noted in the right frontal lobe in the subcortical white matter as well as in the right posterior parietal lobe. These are consistent with small acute infarct may represent small vessel disease or embolic phenomenon.
--- NOTE | 2017-12-08 22:34 | HP ---
HISTORY AND PHYSICAL: DATE OF ADMISSION: 12/08/17 ADMITTING PROVIDER: Cristiano Agee MD PRIMARY CARE PROVIDER: Denise Falcon NP CHIEF COMPLAINT: Left hand weakness. HISTORY OF PRESENT ILLNESS: Mrs. Dixon is an 82-year-old female PMH, paroxysmal atrial fibrillation on Xarelto for a number of years, hypothyroidism , hyperlipidemia, dementia, COPD, former smoker over 20-pack years, who woke up around 7 a.m. with the feeling that her left hand was weak and did not feel like she could parts inspector anything in it. She was last normal upon going to sleep the night prior. Notably, she was recently admitted between 12/04/17 and after a fall for which she said she had been hurrying to the bathroom, had a mechanical fall in the setting of episode of nausea and vomiting. She had been also complaining of a dry cough, generalized weakness, decreased appetite, sore throat, congestion and anabaptist pressure during that admission. She had a urinalysis, which showed 2+ leukocyte esterase, 3+ white blood cells and 1+ bacteria and had got 2 days of ceftriaxone, but the urine culture was contaminated and antibiotics were stopped after that time. The patient overall has been feeling slightly short of breath. Denies any chest pain. Denied any slurred speech or headaches or vision changes. She uses a cane at baseline to walk. She described that she had been having 3 weeks of severe headache pain prior to last admission. Denies any headache currently. She is somewhat poor historian when asked what she was attempting to waste picker this morning. Her partner, Hayde states that that this seemed like she could not move her left arm at all, but she does not attest to this history. She denies any numbness or tingling in any part of her body. Upon presentation to the [facility] emergency room, she had a CT of her head noncontrast, which demonstrated no acute intracranial process or interval change since scan 12/04/17. No hemorrhage seen or evidence of extraaxial masses. There was some mild age- related cortical atrophy with compensatory dilation of the CSF spaces. Neurologist, Dr. Titus was consulted by emergency room physician who recommended head and neck CTA, brain MRI. Head CTA was performed, which showed no evidence of hemodynamically significant carotid stenosis or large vessel intracranial thrombus. However, still note of a left upper lobe infiltrate possible pleural base mass in the left upper lobe and small right pleural effusions were seen. A 2.1 x 1.2 cm pleural based density. So, a CT of the chest noncontrast was performed. This demonstrated a 4.4 cm perihilar mass on the left concerning for neoplasm and the second 1.6 cm lesion posterior to the aortic arch. There was interlobular septal thickening with ground-glass opacification of the left upper lung potentially infectious versus inflammatory pulmonary edema, but given the presence of a lung mass, may also represent a lymphangitic spread of a tumor. Additionally, emphysema and a small left pleural effusion were obtained. The patient had been admitted to observation status for initially a TIA versus stroke rule out for her left hand weakness. Subsequently, a troponin resulted elevated 0.11 and on repeat 0.08. She had a slight leukocytosis at 10.9. She was afebrile, normotensive, heart rate initially in the 60s to 80s. The patient then upon the floor went into episode of rapid atrial fibrillation when walking to the bathroom and then settled down into the 100s to 110s heart rate. Given the lung mass, Dr. Del Rio of Pulmonology was consulted for thoughts on a potential biopsy strategy to make a diagnosis given suspicion of lung cancer. An MRI of the brain noncontrast is pending. The patient additionally describes losing approximately 10 pounds over the last 6 months. Denies fevers or chills or night sweats. PAST MEDICAL HISTORY: 1. Atrial fibrillation, paroxysmal. 2. Hypothyroidism. 3. Hyperlipidemia. 4. Dementia. 5. COPD; 20-pack year former smoker. PAST SURGICAL HISTORY: Status post right total hip arthroscopy secondary to osteomyelitis at age 14 with significant foreshortening of leg. MEDICATIONS: Home medications include: 1. Lasix 40 mg p.o. daily. 2. Prednisone recent taper 10 mg tablets left. 3. Xarelto 20 mg p.o. daily. 4. Synthroid 125 mcg p.o. daily. 5. Ezetimibe (Zetia) 10 mg p.o. daily. 6. Diltiazem 120 mg p.o. daily. 7. Digoxin 0.25 mg p.o. daily. 8. Potassium chloride 10 mEq p.o. daily. 9. Pantoprazole 40 mg p.o. daily. ALLERGIES: No known drug allergies. FAMILY HISTORY: Mother at age 95; dad age 63, history of COPD. SOCIAL HISTORY: Former smoker, quit 22 years ago, 20 years one pack a day. No alcohol use or other drug use. She is accompanied by Hayde who she refers to as her traffic incident management manager and living partner. Surrogate decision maker is her granddaughter , Precious. REVIEW OF SYSTEMS: Complete 14-point review of systems negative except as per HPI. PHYSICAL EXAMINATION GENERAL APPEARANCE: No acute distress. VITAL SIGNS: Temperature 97.4, pulse rate 70s to 80s, oxygen saturation initially 87% on room air improved to 93% to 95% on 2 L, blood pressure 145/94. HEENT: Normocephalic, ecchymosis surrounding the left eye and forehead. No scleral icterus. Extraocular motions intact. Pupils equally round and reactive to light. NECK: Supple. LUNGS: Clear to auscultation bilaterally with no wheezing, rales, or rhonchi. HEART: Regular rate and rhythm. No murmurs, rubs, or gallops. ABDOMEN: Soft, nontender, and nondistended. No peritoneal signs. No guarding. EXTREMITIES: Warm and well perfused. No peripheral edema. Right leg noticeably shorter than left. NEUROLOGIC: Commutator V Ring Assembler strength 5/5 on the right, 5-/5 on the left, biceps 5/5 bilaterally, hip flexion 5/5 bilaterally. Plantar and dorsal flexion 5/5 bilaterally. Finger abduction decreased on the left hand, wrist flexion and extension intact bilaterally. Cranial nerves II through XII intact. SKIN: No lesions, no rashes. DIAGNOSTIC STUDIES/LAB DATA: White count 10.9, hemoglobin 16.4, hematocrit 49 , platelets 199. INR 1.73. Sodium 139, potassium 3.6, chloride 99, carbon dioxide 32, BUN 25, creatinine 0.79, glucose 74, lactic acid 1.1, calcium 10.0. AST 47, ALT 49, alk phos 56. Troponin 0.11 followed by 0.08. Total protein 7.0, albumin 4.0. Urinalysis, specific gravity 1.035, negative leukocyte esterase, nitrites, blood. Toxicology, none detected. IMAGING: CT of the head, no acute intracranial findings. CTA of the head and neck, no hemodynamically significant carotid stenosis or large vessel intracranial thrombus, left upper lobe infiltrate, possible pleural based mass in the left upper lobe and small right pleural effusion. Recommended CT of the chest for further evaluation. CT of the chest noncontrast, 4.4-cm perihilar mass on the left concerning for neoplasm, second lesion noted posterior to the aortic arch measuring 1.6 cm. There is an interlobular septal thickening with ground-glass opacifications of the left upper lung while this may represent an infectious or inflammatory process or possibly asymptomatic pulmonary edema. Given the presence of a lung mass, this may also represent: 1. Lymphangitic spread of tumor. 2. Emphysema. 3. Small left pleural effusion. ASSESSMENT AND PLAN: Jesenia Dixon is an 82-year-old female with paroxysmal atrial fibrillation, on Xarelto, recent generalized weakness, severe headaches x3 weeks and 10-pound loss in the last 6 months, presenting with evidence of weakness in her finger abduction on the left hand, but preserved parts inspector strength. She says her exam has improved and she was initially admitted for concern for transient ischemic attack versus cerebrovascular accident and we will follow up with a brain MRI. There is no evidence seen on CT of the head noncontrast. Most pressing concern; however, now is this 4.4 cm perihilar mass with potential and ground-glass opacities that could represent lymphangitic spread of tumor and additional 1.6 cm lesion posterior to the aortic arch. We have consulted Dr. Del Rio of Pulmonology to help assist with biopsy strategy to confirm whether this indeed represents the suspected malignancy. We will consult with Hematology/Oncology in the morning once former plan is in place. The patient unfortunately already received CT contrast for the head and neck. We do not have full imaging of the abdomen and pelvis to see if there is additional suspicion for lymphadenopathy or masses. We will follow up with MRI of brain also to see if there is any evidence of suspicion for a metastasis. Appreciate recommendations of Dr. Titus of Neurology who is suspicious for more of a peripheral nerve lesion that could possibly also represent metastatic disease. At this point in time, we will focus on the imaging studies already ordered and followup with Pulmonology records for. For her paroxysmal atrial fibrillation on Xarelto, we will continue her digoxin 0.25 mg daily and diltiazem 120 mg extended release daily. We will continue telemetry checks. She did briefly go up into rapid ventricular rate, but quickly went down to the 110s. We will give additional IV diltiazem or metoprolol doses as needed and hold her Lasix 40 mg daily to give some room for the blood pressure in case the rapid ventricular rate is a bigger issue. We will replete lytes to magnesium above 2 and potassium above 4. We will hold off on her re-dosing her Xarelto until we can touch base with Dr. Del Rio about a possible biopsy plan and get an MRI later this afternoon hopefully to see if there is any other suspicion for stroke or mass and may have potential hemorrhagic component or risk to develop thereof. I broke the news to her about the masses in her lungs and she is predictably anxious about the potential diagnosis. We will start azithromycin given her history of COPD and hypoxic respiratory failure and slight leukocytosis. There is no bronchospasm. On exam, is moving air exchange well. This may be all related to potential lung cancer. She can eat a heart healthy diet likely we will place her at n.p.o. midnight, pending biopsy plan. She is a full code. [id number]/[facility] #: [id number] MTDD
--- NOTE | 2017-12-08 23:32 | CONS ---
CONSULTATION REPORT: DATE OF CONSULT: 12/08/17 PATIENT OF: Dr. Agee and Denise Falcon NP. HISTORY OF PRESENT ILLNESS: This 82-year-old woman who I am asked to evaluate for left hand weakness since this morning when she woke up. Of note, she was recently admitted on 12/04/17 for not feeling well and was feeling more weak in general with some nausea. She was admitted for 2 days' time and discharged to home. PAST MEDICAL HISTORY: Includes AFib, hypothyroidism, hyperlipidemia, mild dementia, and COPD. She also has a 40-pack year history of smoking, although has not smoked for more than 20 years. She is status post right total hip arthroplasty. MEDICATIONS: At home include: 1. Lasix 40 mg. 2. Potassium 20 mEq p.o. daily. 3. Zetia 10 mg daily. 4. Diltiazem CD 120 daily. 5. Digoxin 0.25 daily. 6. Xarelto 20 mg daily. 7. Synthroid 125 mcg daily. ALLERGIES: She has no known drug allergies. FAMILY HISTORY: Her father had emphysema. She does not drink alcohol. She lives with her . REVIEW OF SYSTEMS: She has had some chills, but no fever. No weight change. She has had one fall recently, but in general her bowels have been good and walks independently. She has had no numbness. PHYSICAL EXAM: Temperature 97.4, pulse 123, but has been 84, respiratory rate is 18, blood pressure 120/65. She is alert and oriented with normal speech and comprehension. She has ecchymosis over her left side of her face from her fall. Discs were sharp. Motor exam revealed normal tone and strength on the right side and left leg. She had 5/5 left drupal architect with finger abduction was 4+/5 as was finger and wrist extension. She had a slight pronator drift on the left. Sensation intact to light touch. Reflexes were 1 and equal downgoing toes. Chest: Clear. Cardiovascular: Regular rate and rhythm. Abdomen is soft with positive bowel sounds. DIAGNOSTIC STUDIES/LAB DATA: Her CT scan showed no acute findings, was unchanged from the prior CT scan done several days ago. There is some mild subcortical white matter changes. Her CTA was abnormal more significantly for left upper lobe infiltrate with possible pleural base mass. There is no significant stenosis seen. Her chest CT scan showed a 4.4 cm perihilar mass on the left. The second lesion was noted posterior to the aorta and there was septal thickening of the left upper lung possibly pulmonary edema or spread of tumor. She has emphysema and left pleural effusion. Labs include white count 10.9, hematocrit 49, platelets 199. INR 1.73, normal PTT. CMP was normal other than troponin 0.11, AST of 47, BUN of 25. Negative toxicology. Specific gravity of 1.035, otherwise UA negative. IMPRESSION AND PLAN: Jesenia should get the MRI scan which was ordered to screen for stroke, but her pattern of weakness in her left hand is somewhat atypical that her drupal architect is strong, but she has weakness in finger abduction and finger extension. I wonder whether she has a brachial plexus or cervical lesion possibly associated with her probable tumor. She may need further imaging including possibly left brachial plexus and cervical neck MRI scan with and without contrast along with the MRI scan for head with and without contrast that is depending on what overall plans are for this patient, but this would be the full beginning of neurological workup for her symptoms. Thank you for sharing her case. [id number]/[facility] #: [id number] EDWIGE
[2017-12-08] MEDS: Aspirin Low Dose CHEW TAB* 81 MG PO SCH (23:46)
--- NOTE | 2017-12-09 00:22 | CONS ---
PULMONARY CONSULTATION REPORT: DATE OF CONSULTATION: 12/08/17 CONSULTATION REQUESTED BY: Dr. Agee. HISTORY OF PRESENT ILLNESS: The patient is an 82-year-old female, former smoker , who recently moved to the area, 8 months ago, who presents with worsening shortness of breath. The patient was recently discharged from the hospital on Friday with O2 at 2 L per minute. Her O2 sats were around 87% on arrival in the emergency room. The patient presented for evaluation of left hand weakness that she noticed this morning. The patient was found to be in atrial fibrillation with rate controlled at 67 to 76. The patient was recently hospitalized a few days ago when she presented after a fall. The patient denied significant shortness of breath. The patient reports mild intermittent cough. The patient reports weakness. The patient denies history of recurrent bronchitis. The patient was also found to be hypoxemic during recent hospitalization and was discharged home on O2 supplementation. She has history of COPD. She was discharged on tapering doses of prednisone. The patient had CTA of the brain, which showed no evidence of carotid stenosis or intracranial thrombosis. She was noted to have left upper lobe infiltrate and small right pleural effusion and a CT scan was recommended for further evaluation. The patient had chest x-ray on 12/04/17, which was personally reviewed by me. The patient did not have evidence of any acute process that was clearly obvious at that time. CT of the chest done today was also personally reviewed by me - the patient noted to have 4.4 cm perihilar mass on the left side with possible narrowing of left lower lobe bronchus. The patient also has evidence of interlobular septal thickening and ground glass opacification in the left upper lobe. The patient also noted to have a pleural-based mass posterior to the aortic arch on the left lung measuring 1.6 cm. The patient also noted to have centrilobular emphysematous changes and small left pleural effusion. The patient was seen and examined at bedside. The patient denies significant shortness of breath at this time. She is more concerned about her weakness. Neurology was consulted for her neurological issues. PAST MEDICAL HISTORY: 1. COPD. 2. Atrial fibrillation. 3. Hypothyroid. 4. Hyperlipidemia. 5. Dementia. PAST SURGICAL HISTORY: Right total hip arthroplasty. MEDICATIONS: 1. Lasix. 2. Potassium. 3. Zetia. 4. Diltiazem. 5. Digoxin. 6. Xarelto. 7. Prednisone taper, which she completed. 8. Synthroid. ALLERGIES: No known drug allergies. FAMILY HISTORY: Mother lived to . Father had emphysema. SOCIAL HISTORY: Former smoker, quit recently. No alcohol or drug abuse. REVIEW OF SYSTEMS: All 14 systems reviewed and as per HPI. PHYSICAL EXAMINATION: The patient in bed in no apparent distress. Pleasant elderly female. Vital Signs: Temperature 97.4, heart rate 121 beats per minute , respiratory rate 20 per minute, O2 saturation 93% on 2 L, blood pressure 115/ 72. HEENT: Pupils equal and reactive to light. Mucous membranes moist. Lungs : Distant breath sounds. Scattered wheeze. Cardiovascular: S1, S2 present. Irregular. Abdomen: Obese. Bowel sounds present. Nontender, nondistended. Neurologic: Decreased strength in left upper extremity. Skin: No rash or bruises. DIAGNOSTIC STUDIES/LABORATORY DATA: WBC 10.9, hemoglobin 16.4, hematocrit 49, platelet count of 199,000. Sodium 139, potassium 3.6, chloride 99, bicarbonate 32, BUN 25, creatinine 0.79. Troponins elevated, trending down. Lactic acid 1.1. Digoxin level is within normal limits. Implant recently was normal. CT of the chest as described above in HPI. IMPRESSION AND RECOMMENDATIONS: 82-year-old female with significant smoking history, admitted with transient ischemic attack symptoms after recent fall, found to have left lower lobe lung mass, and possible lymphadenopathy concerning for malignancy. Findings concerning for lung cancer. The patient will need bronchoscopy and biopsy. We will schedule bronchoscopy/EBUS as outpatient. The patient not in respiratory distress at this time. She is not in acute chronic obstructive pulmonary disease exacerbation. Will need neurological evaluation for evaluation of cerebrovascular accident. Symptoms could also be secondary to paraneoplastic syndrome given suspicion for underlying lung cancer. Thank you for allowing me to participate in the care of your patient. Will follow up with you. [id number]/[facility] #: [id number] EDWIGE
[2017-12-09] MEDS: Levothyroxine TAB* 125 MCG TAB PO SCH (06:02)
[2017-12-09 06:30] LABS: ABS Basophils 0.1 10^3/ul (0-0.2); ABS Eosinophils 0.1 10^3/ul (0-0.6); ABS Lymphocytes 1.1 10^3/ul (1.0-4.8); ABS Monocytes 0.7 10^3/ul (0-0.8); ABS Neutrophils 7.5 10^3/ul (1.5-7.7); ABS Nucleated RBC 0 10^3/ul; Hematocrit 48 % (35-47); Hemoglobin 16.2 g/dl (12.0-16.0); Lymphocyte % 11.8 % (25-47); Mean Corpuscular HGB Conc 34 g/dl (31-36); Mean Corpuscular Hemoglobin 30 pg (27-31); Mean Corpuscular Volume 89 fL (80-97); Mean Platelet Volume 8 um3 (7.4-10.4); Nucleated Red Blood Cells % 0.2; Platelet Count 212 10^3/ul (150-450); Red Blood Count 5.35 10^6/ul (4.0-5.4); Red Cell Distribution Width 15 % (10.5-15); White Blood Count 9.5 10^3/ul (3.5-10.8)
[2017-12-09] MEDS: Diltiazem CD CAP* 120 MG PO SCH (08:29)
[2017-12-09] MEDS: Aspirin Low Dose CHEW TAB* 81 MG PO SCH (08:29)
[2017-12-09] MEDS: Ezetimibe TAB* 10 MG PO SCH (08:29)
--- NOTE | 2017-12-09 10:30 | ECHO ---
Patient: JOSÉ LUIS LOVETT [facility] Rec#: [id number] : 1935 Date: 12/09/2017 Age: 82y Height: 154.94 cm / 61.0 in Weight: 60.33 kg / 133.0 lbs Sex: F BSA: 1.59 Room#: [facility] Admit Date#: 12/08/2017 Type: Inpatient Referring: Cristiano Agee Reading: Nestor Joya MD Dramatic Reader: Denise Kilgore,NADEEMCS,RDMS CC: Denise Falcon NP Transthoracic Echocardiogram Indication: CVA, Hypoxemia BP: 142/78 HR: 84 Rhythm: A-Fib Findings History: Paroxysmal AFIB, HLD, COPD, lung mass Technical Comments: The study quality is good. Left Ventricle: The left ventricular chamber size is normal. There is a prominent septal knuckle. Left ventricular systolic function is at the lower limits of normal. The estimated ejection fraction is 50-55%. The assessment of diastolic function is non-diagnostic. Left Atrium: The left atrium is mildly dilated. Right Ventricle: The right ventricular chamber size and systolic function are within normal limits. The right ventricle wall thickness is mildly increased. Right Atrium: The right atrium is slightly dilated. Aortic Valve: The aortic valve is trileaflet. Systolic excursion of the aortic valve is normal. There is aortic annular calcification. There is no evidence of aortic regurgitation. There is no evidence of aortic stenosis. Mitral Valve: There is mitral annular calcification. The mitral valve leaflets are mildly thickened. There is moderate to severe mitral regurgitation. There is no evidence of mitral stenosis. Tricuspid Valve: The tricuspid valve leaflets are normal. There is mild to moderate tricuspid regurgitation. No pulmonary hypertension is noted. Pulmonic Valve: The pulmonic valve appears normal. There is no evidence of pulmonic regurgitation. Pericardium: There is no significant pericardial effusion. Aorta: The aortic root appears normal. The aortic arch is not well visualized. Pulmonary Artery: The main pulmonary artery appears normal. Venous: The inferior vena cava appears normal in size. There is an approximate 50% respiratory change in the inferior vena cava dimension. Summary: There was not any prior study for comparison. Conclusions Left ventricular systolic function is at the lower limits of normal. The estimated ejection fraction is 50-55%. Mild global hypokinesis The right ventricular chamber size and systolic function are within normal limits. There is no evidence of aortic stenosis. There is no evidence of aortic regurgitation. There is moderate to severe mitral regurgitation. There is no evidence of mitral stenosis. There is mild to moderate tricuspid regurgitation. There is no significant pericardial effusion. Measurements Name Value Normal Range RVIDd (AP) 2D 1.7 cm (0.9 - 2.6) RAd ISD 4CH 5.2 cm (3.4 - 4.9) RA (A4C)W 3.1 cm (2.9 - 4.6) IVSd (2D) 1.3 cm (0.6 - 1) LVPWd (2D) 1 cm (0.6 - 1) LVIDd (2D) 4.1 cm (3.6 - 5.4) LVIDs (2D) 2.7 cm - LV FS (2D) 36 % (25 - 45) Aortic Annulus 2 cm (1.4 - 2.6) Ao root diameter (2D) 2.9 cm (2.1 - 3.5) Ascending Ao 2.6 cm (2.1 - 3.4) LA dimension (AP) 2D 4 cm (2.3 - 3.8) LAd ISD 4CH 5.5 cm (2.9 - 5.3) LA ISD 4CH W 4.2 cm (2.5 - 4.5) Name Value Normal Range LA ESV SP 4CH (A/L) 57.31 ml - LA ESV SP 2CH (A/L) 34.51 ml - LA ESV BP (A/L) 50.5 ml - LA ESV BP (A/L) index 32 ml/m2 - LA ESV SP 4CH (MOD) 51.11 ml - LA ESV SP 2CH (MOD) 33.19 ml - LV EDV SP 4CH (MOD) 39.17 ml - LV ESV SP 4CH (MOD) 23.29 ml - EF SP 4CH (MOD) 40.55 % - LV EDV SP 2CH (MOD) 49.87 ml - LV ESV SP 2CH (MOD) 28.02 ml - EF SP 2CH (MOD) 43.8 % - LV EDV BP 47.34 ml - LV ESV BP 25.54 ml - BP EF (MOD) 46 % - Name Value Normal Range MV E-wave Vmax 1.3 m/sec - MV deceleration time 133 msec - LV lateral e' Vmax 0.11 m/sec - LV E:e' lateral ratio 12 ratio - Name Value Normal Range AV Vmax 1 m/sec - AV peak gradient 4 mmHg - LVOT Vmax 0.7 m/sec - LVOT peak gradient 2 mmHg - Name Value Normal Range MV Vmax 1.4 m/sec - MV VTI 22 cm - MV peak gradient 8 mmHg - MV mean gradient 2.7 mmHg - MV PHT 54 msec - MR Vmax 5.8 m/sec - MR VTI 168 cm - MR volume (PISA) 15 ml - MR flow (PISA) 58 ml/sec - MR ERO 0.9 cm2 - MR PISA radius 0.5 cm - MR alias Vmax 32 cm/sec - MVA (PHT) 4.1 cm2 - Name Value Normal Range TR Vmax 2.6 m/sec - TR peak gradient 27 mmHg - RAP 3 mmHg - RVSP 30 mmHg - IVC diameter 1.8 cm - Name Value Normal Range PV Vmax 0.5 m/sec - PV peak gradient 1.08 mmHg -
[2017-12-09 13:12] VITALS: BP 152/98
--- NOTE | 2017-12-09 18:43 | PN ---
Progress Note - Progress Note Date of Service: 12/09/17 - Pulm f/u note Note: Pt seen and examined at beside. Pt reported slight improvement in Lt wrist weakness. Denied SOB, chest pain. No new complaints. Digoxin TAB* [Lanoxin TAB*] 0.25 mg PO DAILY Diltiazem CD CAP* [Cardizem CD CAP*] 120 mg PO DAILY Ezetimibe TAB* [Zetia TAB*] 10 mg PO DAILY Levothyroxine TAB* [Synthroid 125 MCG TAB*] 125 mcg PO DAILY Furosemide TAB* [Lasix TAB*] 40 mg PO DAILY 12/08/17 Potassium Chlor TAB* [Klor Con ER TAB 10 MEQ*] 10 meq PO DAILY Aspirin Low Dose CHEW TAB* [Aspirin Low Dose TAB*] 81 mg PO DAILY Atorvastatin* [Lipitor 40 MG*] 40 mg PO DAILY Vital Signs Temp Pulse Resp BP Pulse Ox 97.4 F 70 18 152/98 95 12/09/17 11:46 12/09/17 11:46 12/09/17 11:46 12/09/17 11:46 12/09/17 11:46 O/E: Pt in NAD HEENT: PERRLA, No JVD Lungs: Clear to auscultation b/l, no wheeze CVS: S1, S+, irregular Abd: Obese, BS+ Skin: Bruise over the eye Laboratory Results - last 24 hr 12/08/17 12/09/17 12/09/17 18:13 06:23 06:23 WBC 9.5 RBC 5.35 Hgb 16.2 H Hct 48 H MCV 89 MCH 30 MCHC 34 RDW 15 Plt Count 212 MPV 8 Neut % (Auto) 78.9 Lymph % (Auto) 11.8 L Swift % (Auto) 7.8 Eos % (Auto) 1.0 Baso % (Auto) 0.5 Absolute Neuts (auto) 7.5 Absolute Lymphs (auto) 1.1 Absolute Monos (auto) 0.7 Absolute Eos (auto) 0.1 Absolute Basos (auto) 0.1 Absolute Nucleated RBC 0 Nucleated RBC % 0.2 Sodium 137 Potassium 4.2 Chloride 102 Carbon Dioxide 29 Anion Gap 6 BUN 18 Creatinine 0.68 Est GFR ( Amer) 106.8 Est GFR (Non-Af Amer) 83.0 BUN/Creatinine Ratio 26.5 H Glucose 97 Calcium 9.4 Magnesium 2.0 Troponin I 0.08 H* Digoxin 2.1 H I/R: 82 y o f former smoker with h/o COPD s/p recent fall a/w Lt upper extremity weakness found to have Lt hilar mass and GGO opacity in [place] Pt with small vessel chnges noted on MRI, no metastasis noted Lung mass concerning for malignancy Scheduled pt for bronchoscopy/EBUS on Friday12/17/17 Pt scheduled for PET scan on 12/16/17 Procedure was discussed in detail with pt and family at bedside. Associated risks and benefits were thoroughly discussed Pt agreeale to procedure Will stop Xarelto 2 days prior to procedure A.fib, rate controlled D/w Dr Agee, Pt, pts and son-in-law at bedside.
--- NOTE | 2017-12-10 04:50 | DS ---
DISCHARGE SUMMARY: DATE OF ADMISSION: 12/08/17 DATE OF DISCHARGE: 12/09/17 ADMITTING AND ATTENDING PHYSICIAN: Cristiano Agee MD PRIMARY CARE PROVIDER: Denise Falcon NP PRIMARY CONSULTING NEUROLOGIST: Miki Titus MD CHIEF COMPLAINT: Acute onset of left hand and finger weakness and clumsiness. 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 HISTORY OF PRESENT ILLNESS AND HOSPITAL COURSE: Ms. Dixon is an 82-year-old female with past medical history of paroxysmal atrial fibrillation on Xarelto, hypothyroidism, hyperlipidemia, dementia, COPD, former smoker over 20-pack years , who woke up at 7 a.m. on the day of admission with feeling of clumsiness and weakness in her left hands and fingers, feeling like she could not synchronizer anything with them. She had been last normal going to sleep night prior. She had recently been admitted on 12/04/17 to 12/06/17 after a fall in the setting of nausea and vomiting and hurrying to the bathroom and had been discharged on home oxygen and suspicion for potential urinary tract infection, although received 2 days of ceftriaxone before. That was stopped at that time. It seems in the ED, she got a CT of the head which showed no acute process. Dr. Titus of Neurology was consulted and recommended CT angiogram of the head and neck which showed no evidence of hemodynamically significant carotid stenosis or large vessel intracranial thrombus. Incidental note of infiltrate in the left upper lobe and pleural-based density measuring approximately 2.1 x 1.2 cm was noted and resulting CT chest noncontrast demonstrated a 4.4 cm perihilar mass on the left concerning for neoplasm; second lesion posterior to the aortic arch measuring 1.6 cm; interlobular septal thickening with ground-glass opacification to the left upper lobe, which may represent infectious or inflammatory process or asymmetric pulmonary edema, but given the presence of lung mass may also represent a lymphangitic spread of tumor; small left pleural effusion and emphysema. The patient had a brain MRI, which demonstrated scattered cortical areas of restriction of diffusion in the right frontal lobe in the subcortical white matter as well as the right posterior parietal lobe consistent with small acute infarctions. Dr. Titus reviewed these images and thought that possibly could all be from MCA territory stroke and did not see anything on the left side of the brain. After finding the left lung mass, Dr. Del Rio was consulted, who agreed with need for a biopsy to rule out malignancy and that has been apparently arranged for 12/17/17 as an outpatient with endoscopy and EBUS. Dr. Titus recommends holding the Xarelto given the increased bleeding risk given the associated strokes and also the need for potential biopsy. Administration of aspirin 81 mg until that time and recommends a CT head 7 days out from CVA, approximately next Friday also on the day of biopsy to see if the patient is safe to restart Xarelto or needs to be held further for increased risk of bleeding. The patient had a transthoracic echocardiogram, which showed some preserved ejection fraction of 50% to 55% with moderate to severe mitral valve regurgitation. No mention of thrombus, vegetations was seen. Dr. Polanco of Hematology/Oncology was given a heads up about the patient without formally consulted. The patient's course was complicated by her paroxysmal atrial fibrillation and she had brief episodes of rapid ventricular response in the 160s when ambulating. She was continued on her home Cardizem 120 mg extended release, digoxin 0.25 mg daily, although on hospital day #2 was held given a slightly elevated level of 2.1. The patient is being discharged with initiation of home health aides and home physical therapy. The patient was also started on atorvastatin 40 mg daily given review of previous lipid panel showing LDL of 167, HDL of 47.8 and these were from 09/17/17. She had troponin of 0.11, which decreased to 0.08 and had noted to have 0.5 to 0.6 during previous admission. She denies any chest pain, chest pressure, and no ST elevations or depressions. DISCHARGE MEDICATIONS: Include: 1. Aspirin 81 mg daily (new). 2. Atorvastatin 40 mg daily (new). 3. Diltiazem 120 mg p.o. daily. 4. Zetia 10 mg p.o. daily. 5. Levothyroxine 125 mcg p.o. daily. 6. Digoxin 0.25 mg p.o. daily with recommendation to hold for 1 more day. 7. Lasix 40 mg p.o. daily. 8. Potassium chloride 10 mEq p.o. daily. Of note, Xarelto 20 mg daily was recommended to be held until repeat CT head noncontrast could be obtained in approximately 7 days after discharge. DIET: Heart healthy. RESTRICTIONS: No restrictions to activity. FOLLOWUP: Please followup with Dr. Titus within 1 to 2 weeks, Denise Falcon within 5 days and with outpatient EBUS/endoscopy tentatively scheduled on with Dr. Del Rio. The patient also should call to arrange appointment with Dr. Polanco tentatively around 12/24/17, approximately 1 week after biopsy. TIME SPENT: Time spent on discharge 35 minutes. [id number]/[facility] #: [id number] EDWIGE
[2017-12-10] MEDS ORDERED: Rivaroxaban TAB(*) 20 MG TAB PO SCH (09:00)
--- NOTE | 2017-12-10 09:15 | PN ---
NEUROLOGICAL FOLLOWUP NOTE: DATE OF SERVICE: HISTORY: She has no new symptoms other than the family is concerned about her overall weakness in ge tting around, but this is more of a fatigue than any focal numbness or weakness. She still has persi stent left hand weakness. MEDICATIONS: Currently are: 1. Lopressor. 2. Synthroid. 3. Zetia. 4. Cardizem. 5. Lipitor. 6. Aspirin. The Xarelto was stopped after the results of her MRI scan. PHYSICAL EXAMINATION: Temperature 97.4, pulse 70, respirations 18, blood pressure 152/98. She is al ert and oriented with normal speech and comprehension. Cranial nerves II through XII were intact. M otor exam revealed normal tone and strength. Other than unchanged weakness in the hand, her space scheduler krishna ins relatively strong. Chest: Clear. Cardiovascular: Regular rate and rhythm. Abdomen is soft wit h positive bowel sounds. Her transthoracic echo showed no evidence of clot. There is [id number] mitral regurgitation. Her MRI scan I reviewed and showed subacute stroke in a right frontal extending to posterior parietal lobe in a spotty distribution. There was no acute stroke elsewhere. most likely represents either disease secondary to large intracerebral vessel disease, either a plaque that broke off that e mbolizes the artery to artery or possibly an area of tight stenosis that is now opened, but causing m ultiple small strokes in 1 vascular distribution. This is unlikely to be cardioembolic. I discussed this with family and Dr. Agee given the extent of the stroke, the risk of bleeding from the Xarelto is higher than the risk of acute stroke within the next week or so. She is having a biopsy next and was going to be off the Xarelto for a day before. We are going to keep her off the Xarelto through then and then he is going to arrange for a CT scan and then I would see her after that and w e can restart the Xarelto unless she has other procedures. Discussed with family and Dr. Agee that it is possible that she has tumor in her periphery causing some nerve irritation as well and that once the diagnosis of tumor is made presumably next week, the oncologist will be staging her and this shou ld be included as possibly part of the staging evaluation. I have also spoken with Dr. Agee letting him know the family is concerned about her overall fatigue and that it would be reasonable to have Ph ysical Therapy evaluate before she goes home. [id number]/[facility] #: [id number]
== END 2017-12-09 17:00 | disposition home or self-care (01) ==
LOC: ED 08:11 → MEDTELE 10:54
PROVIDERS: ADMIT Internal Medicine; ATTEND Internal Medicine
DX: I63.9 Cerebral infarction, unspecified (principal); G81.94 Hemiplegia, unspecified affecting left nondominant side; R91.8 Other nonspecific abnormal finding of lung field; R51 Headache; I48.0 Paroxysmal atrial fibrillation; Z79.01 Long term (current) use of anticoagulants; I34.0 Nonrheumatic mitral (valve) insufficiency; E03.9 Hypothyroidism, unspecified; E78.5 Hyperlipidemia, unspecified; F03.90 Unspecified dementia, unspecified severity, without behavioral disturbance, psychotic disturbance, mood disturbance, and anxiety; J44.9 Chronic obstructive pulmonary disease, unspecified; Z87.891 Personal history of nicotine dependence; Z79.899 Other long term (current) drug therapy; R74.8 Abnormal levels of other serum enzymes
CPT/HCPCS: 36415; 70450; 70496; 70498; 70551; 71250; 80048; 80053; 80162; 80307; 81003; 83605; 83735; 84484; 85025; 85610; 85730; 86850; 86900; 86901; 93306; 99284; A9270-GY; G0378; Q9967

== ENCOUNTER 2017-12-17 11:45 | Day surgery (SDC) | payer MEDICARE, BC ==
[~2017-12-17 11:45] MED LIST: Buffered Lidocaine 0.9% SYRIN* 5 ML/SYR SYRINGE INTRADERM ONE; NS 0.9% 1000 ML* 1,000 ML IV SCH
[2017-12-17] MEDS ORDERED: Midazolam* 1 MG/ML 2 ML VIAL (2 MG) ONE (13:02)
[2017-12-17] MEDS ORDERED: KETAMINE HCL* 50 MG/ML 10 ML VIAL ONE (13:16)
[2017-12-17] MEDS ORDERED: fentaNYL* 50 MCG/ML 2 ML VIAL (100 MCG VIAL) ONE (13:16)
[2017-12-17] MEDS ORDERED: Dexamethasone IV* 4 MG/ML 1 ML (4 MG) ONE (13:18)
[2017-12-17] MEDS ORDERED: Famotidine IV* 10 MG/ML 2 ML (20 mg) ONE (13:18)
[2017-12-17] MEDS ORDERED: Propofol* 10 MG/ML 20 ML BTL IV PUSH ONE (13:18)
[2017-12-17] MEDS ORDERED: Mivacurium Chloride* 20 MG/10 ML VIAL IV ONE (13:18)
[2017-12-17] MEDS ORDERED: Labetalol IV* 5 MG/ML 20 ML VIAL ONE (13:33)
[2017-12-17] MEDS ORDERED: Levalbuterol 0.63MG/3ML NEB* UNIT OF USE INH PRN (13:50)
[2017-12-17] MEDS ORDERED: Ondansetron INJ* 2 MG/ML VIAL IV PRN (13:50)
[2017-12-17] MEDS ORDERED: Naloxone* 0.4 MG/ML 1 ML VIAL IV PRN (13:50)
[2017-12-17] MEDS ORDERED: Acetaminophen TAB* 325 MG PO PRN (13:50)
[2017-12-17] MEDS ORDERED: Levalbuterol HFA INHALER* 1 PUFF MDI ONE (13:58)
[2017-12-17 15:45] VITALS: BP 111/56
--- NOTE | 2017-12-18 10:28 | PRO ---
BRONCHOSCOPY REPORT: DATE OF PROCEDURE: 12/17/17 PROCEDURE PERFORMED: Bronchoscopy with endobronchial ultrasound-guided fine needle aspiration from R4 lymph node. PREPROCEDURAL DIAGNOSES: Lung mass, mediastinal adenopathy, rule out malignancy. ANESTHESIA: General anesthesia. ANESTHESIOLOGIST: Dr. Mueller. DESCRIPTION OF PROCEDURE: Informed consent was obtained from the patient prior to the procedure after all the risks and benefits were thoroughly explained. The patient recently was hospitalized for shortness of breath, cough, was found to have left-sided lung mass with possible endobronchial involvement and prominent lymph nodes. The patient had PET scan yesterday, which showed increased uptake in lung mass and also in the mediastinal lymph nodes. Time- out was performed and agreed on by attending staff. The patient was intubated with size 8.0 endotracheal tube. A flexible Olympus bronchoscope was inserted for airway inspection. ET tube positioning was confirmed to be 2.5 cm above the level of ethel. No endobronchial lesions were noted on the right side. The patient was noted to have mucosal irregularities and narrowing of left main stem and upper lobe bronchus at the level of take off. Olympus bronchoscope was then withdrawn and EBUS bronchoscope was inserted through ET tube. R4 lymph node was sampled with three passes. Rapid on-site evaluation revealed malignant cells. Rest of specimen was placed in CytoLyt for cell block. The patient tolerated the procedure well. The patient was extubated and seen in Recovery in optimal condition. [id number]/[facility] #: [id number] MTDD
== END 2017-12-17 15:45 | disposition home or self-care (01) ==
LOC: OR 11:45
PROVIDERS: ATTEND Internal Medicine
DX: C77.1 Secondary and unspecified malignant neoplasm of intrathoracic lymph nodes (principal); R91.8 Other nonspecific abnormal finding of lung field; J44.9 Chronic obstructive pulmonary disease, unspecified; I48.91 Unspecified atrial fibrillation; E03.9 Hypothyroidism, unspecified; E78.5 Hyperlipidemia, unspecified; Z86.73 Personal history of transient ischemic attack (TIA), and cerebral infarction without residual deficits; Z79.01 Long term (current) use of anticoagulants
CPT/HCPCS: 88172; 88173; 88305; 88341; 88342; 88360; A9270-GY; J1100; J2250; J2704; J3010

== ENCOUNTER 2017-12-25 09:25 | Inpatient (IN) | payer MEDICARE, BC ==
[2017-12-25 09:59] LABS: Hematocrit 49 % (35-47); Hemoglobin 16.8 g/dl (12.0-16.0); Mean Corpuscular HGB Conc 34 g/dl (31-36); Mean Corpuscular Hemoglobin 30 pg (27-31); Mean Corpuscular Volume 88 fL (80-97); Mean Platelet Volume 9 um3 (7.4-10.4); Platelet Count 176 10^3/ul (150-450); Red Blood Count 5.58 10^6/ul (4.0-5.4); Red Cell Distribution Width 15 % (10.5-15); White Blood Count 9.5 10^3/ul (3.5-10.8)
[2017-12-25 10:02] LABS: ABS Basophils 0.1 10^3/ul (0-0.2); ABS Eosinophils 0.1 10^3/ul (0-0.6); ABS Lymphocytes 1.1 10^3/ul (1.0-4.8); ABS Monocytes 0.9 10^3/ul (0-0.8); ABS Neutrophils 6.9 10^3/ul (1.5-7.7); ABS Nucleated RBC 0 10^3/ul; Eosinophil % 0.8 % (0-6); Lymphocyte % 11.9 % (25-47); Nucleated Red Blood Cells % 0.2
--- NOTE | 2017-12-25 10:15 | RAD ---
Indication: Moderate dyspnea. Dehydration. Atrial fibrillation. Chronic obstructive pulmonary disease. Hypermetabolic LEFT lung mass and thoracic lymphadenopathy. Comparison: December 16, 2017 PET/CT. December 04, 2017 chest radiograph. December 08, [address] Technique: Sitting AP and lateral chest views. Report: LEFT hilar mass with extension to the LEFT lower lobe noted based on correlation with prior CT with unchanged appearance compared with the previous chest radiograph. No significant change in peripheral subtle alveolar and interstitial infiltrate at the LEFT mid lung zone. Negative for pleural effusion or pneumothorax. Elevated lung volumes and both diffuse mild prominence of the interstitial markings and patchy rarefaction of the mid to upper lung zone interstitial markings. Negative for cardiomegaly. Unremarkable central pulmonary vasculature. IMPRESSION: 1. Previously documented LEFT hilar mass with extension into the LEFT lower lobe. Postobstructive pneumonitis at the superior segment of the LEFT lower lobe should be considered. 2. Stigmata of chronic obstructive pulmonary disease and emphysema.
[2017-12-25 10:23] LABS: EGFR Non-African American 76.5 (>60)
[2017-12-25] MEDS ORDERED: NS 0.9% 1000 ML* 1,000 ML IV SCH ×2 (10:30→13:30)
[2017-12-25] MEDS ORDERED: Levofloxacin 750 MG IVPREMIX(* 750 MG/150 ML BAG IVPB ONE (10:39)
[2017-12-25 14:31] LABS: Urine Appearance Clear; Urine Blood Negative (Negative); Urine Color Yellow; Urine Ketones Trace (Negative); Urine Protein Negative (Negative); Urine Specific Gravity 1.021 (1.010-1.030); Urine Urobilinogen Negative (Negative)
[2017-12-25] MEDS: Dronabinol CAP* 2.5 MG PO SCH ×2 (15:37→22:21)
[2017-12-25] MEDS: Digoxin TAB* 0.25 MG PO SCH (17:20)
[2017-12-25] MEDS: Atorvastatin* 40 MG TAB PO SCH (17:20)
[2017-12-26] MEDS: Levothyroxine TAB* 125 MCG TAB PO SCH (05:57)
[2017-12-26] MEDS: Diltiazem CD CAP* 120 MG PO SCH (08:50)
[2017-12-26] MEDS: Dronabinol CAP* 2.5 MG PO SCH ×3 (08:51→21:29)
[2017-12-26] MEDS: Ezetimibe TAB* 10 MG PO SCH (08:51)
[2017-12-26] MEDS: Rivaroxaban TAB(*) 20 MG TAB PO SCH (10:16)
[2017-12-26] MEDS: Levofloxacin TAB* 500 MG PO SCH (12:59)
--- NOTE | 2017-12-26 13:14 | RADMED ---
CC: Denise Falcon NP * RADIATION ONCOLOGY CONSULTATION NOTE: DATE OF SERVICE: 12/25/17 DIAGNOSIS: Non-small cell lung cancer. PERFORMANCE STATUS: ECOG 3. HISTORY OF PRESENT ILLNESS: Jesenia Dixon is an 82-year-old woman who was undergoing evaluation recently following stroke, which included CTA of the head and neck, which showed no hemodynamically significant carotid stenosis, but did identify a pleural-based mass in the left upper lobe. Follow up chest CT of identified left hilar mass and mediastinal and supraclavicular adenopathy. She underwent PET CT on 12/16/17, which identified multiple hypermetabolic lymph nodes, extensive including the right supraclavicular area with extensive hypermetabolic left infrahilar mass. Bronchoscopy performed on 12/17/17 identified mucosal irregularity and narrowing of the left mainstem and left upper lobe bronchi, and endobronchial ultrasound-guided biopsy of the R4 lymph node confirmed metastatic adenocarcinoma, TTF-1 positive consistent with lung primary. She has shortness of breath, weakness, anorexia, weight loss, and continued decline. Her family was concerned because of her decline particularly not eating or drinking, and she was evaluated through the emergency department and has been admitted for shortness of breath with concerns for postobstructive pneumonia. She is referred for consideration of palliative thoracic radiation therapy. PAST MEDICAL HISTORY: Lung cancer, as in the history of present illness. History of recent CVA, COPD, dementia, hypothyroidism, hyperlipidemia, atrial fibrillation. MEDICATIONS: As per the inpatient record: 1. Lipitor. 2. Digoxin. 3. Cardizem. 4. Dronabinol. 5. Zetia. 6. Levaquin. 7. Synthroid. 8. Xarelto. ALLERGIES: No known drug allergies. FAMILY HISTORY: Significant for her sister with Hodgkin lymphoma. No other history of malignancy reported in her first-degree relatives. SOCIAL HISTORY: She is a former smoker, having quit in the distant past. She is accompanied by her and son who are quite supportive. REVIEW OF SYSTEMS: As in the history of present illness, otherwise complete review of systems is obtained from the patient, negative for additional significant findings. PHYSICAL EXAMINATION: Vital Signs: Temperature 97.4, pulse rate 82, respiratory rate 18, oxygen saturation 96% on nasal cannula, blood pressure 166/ 76. In general, she is awake, alert, oriented, in no acute distress. Normocephalic, atraumatic. Sclerae anicteric. Neck: Supple. Full range of motion. Midline trachea. No mass palpable in the neck or thyroid. Lungs with distant breath sounds, but symmetric air entry. Cardiovascular: S1, S2 regular. Abdomen: Not acute. Extremities: No edema. PATHOLOGY AND RADIOLOGY: Reviewed, as in the history of present illness. ASSESSMENT AND PLAN: Jesenia Dixon is an 82-year-old woman with recently diagnosed adenocarcinoma of the lung primary with extensive left hilar mass and obstruction and extensive regional adenopathy, admitted with concerns for shortness of breath and postobstructive pneumonia. I did review her history as well as pathologic and radiographic findings, and discussed at some length with the patient and her family, as they are already well informed and familiar. We reviewed the natural history of non-small cell lung cancer, and considerations for management, with the majority of our discussion focused on her situation and the potential role for thoracic radiation therapy. I explained the logistics and rationale for that treatment, risks, benefits, and alternatives as well as the acute and long-term frequent and uncommon toxicities. With anorexia, weight loss, and failure to thrive as major concern, there is some potential that the short-term fatigue and potential esophagitis, while often minimal from a short course of palliative radiation therapy could be a net negative in the face of an extensive cancer problem without options for overall disease management that would have acceptable risk moving forward. She has not been recommended for any systemic therapy based on her performance status. She does have consultation with regard to palliative care options and I did briefly discuss palliative care without cancer directed therapy and hospice. I did answer their questions to the best of my ability. If she is inclined, she would be a candidate for short course of palliative radiation therapy, and typically for her situation, I recommend 2000 cGy in 5 fractions. I will follow up with her and did provide my contact information if she is inclined to proceed with treatment. Thank you for giving me the opportunity to participate in the care of this very pleasant patient. [id number]/[facility] #: [id number] [facility] CENTERNaina
[2017-12-26] MEDS: Digoxin TAB* 0.25 MG PO SCH (17:01)
[2017-12-26] MEDS: Atorvastatin* 40 MG TAB PO SCH (17:01)
[2017-12-27] MEDS: Levothyroxine TAB* 125 MCG TAB PO SCH (05:16)
--- NOTE | 2017-12-27 07:38 | DS ---
- Discharge Summary ADMIT DATE: 12/25/2017 DISCHARGE DATE: 12/26/2017 DISCHARGE DIAGNOSIS: 1. locally advanced lung cancer 2. postobstructive PNA 3. failure to thrive DISCHARGE MEDICATIONS: Home Medications Medication Instructions Recorded Confirmed Type Digoxin TAB* [Lanoxin TAB*] 0.25 mg PO QPM 12/04/17 12/25/17 History Diltiazem CD CAP* [Cardizem CD 120 mg PO QAM 12/04/17 12/25/17 History CAP*] Ezetimibe TAB* [Zetia TAB*] 10 mg PO QAM 12/04/17 12/25/17 History Levothyroxine TAB* [Synthroid 125 125 mcg PO QAM 12/04/17 12/25/17 History MCG TAB*] Potassium Chlor TAB* [Klor Con ER 10 meq PO QAM 12/08/17 12/25/17 History TAB 10 MEQ*] Atorvastatin* [Lipitor 40 MG*] 40 mg PO QPM 12/11/17 12/25/17 History Levofloxacin TAB* [Levaquin TAB*] 750 mg PO DAILY #10 tab 12/25/17 Rx Rivaroxaban TAB(*) [Xarelto 10 mg 20 mg PO DAILY 12/25/17 12/25/17 History (*)] Dronabinol CAP* [Marinol CAP*] 5 mg PO TID #90 cap MDD 3 tabs 12/27/17 Rx DISCONTINUE DIURETIC DISCHARGE FOLLOW UP: 1. Dr. Polanco 12/30/2017 at 4:40 pm HOSPITAL COURSE: Jesenia was admitted for weakness, dehydration and SOB, with likely postobstructive PNA. She has a performance status of 3-4 and so she is not felt to be an appropriate candidate for palliative chemotherapy. She was seen in consultation by Dr. Ontiveros to discuss possible palliative radiation therapy, however it is not clear that this would provide a significant benefit and may cause significant esophagitis in someone who is already not eating well. She is disinclined to do this. She had a palliative care consult, and though she personally seems interested in "going home to ", and her family seems on board with the concept of hospice, her partner,Hayde, is quite opposed. He tells me today that he has been in touch with [facility] and is considering taking her there, or to "a bigger hospital" where they can try to "fix her". She did improve with marinol and hydration, though refused hydration over night. She will be discharged OFF of her diuretic given her minimal PO intake. I did explain to Hayde at length that I do NOT anticipate that she will get stronger given that she has a cancer that we can not offer her treatment for. He stated that if he needs to take her back to the hospital he will drive her to a "bigger one" where they may offer more. I did express my concern that this is not realistic. She will have a follow up appointment with Dr. Polanco on Friday at 440 pm. >30 mins spent, >50% in face to face counseling, followed by a phone conversation with Hayde.
[2017-12-27] MEDS: Dronabinol CAP* 2.5 MG PO SCH (07:46)
[2017-12-27] MEDS: Rivaroxaban TAB(*) 20 MG TAB PO SCH (07:47)
[2017-12-27] MEDS: Ezetimibe TAB* 10 MG PO SCH (07:47)
[2017-12-27] MEDS: Digoxin TAB* 0.25 MG PO SCH (07:47)
[2017-12-27] MEDS: Diltiazem CD CAP* 120 MG PO SCH (07:54)
[2017-12-27 07:56] VITALS: BP 118/60
--- NOTE | 2017-12-27 08:27 | ED ---
Jazzmine Crouch Thomas scribed for Junior Szymanski MD on 12/25/17 at 0942 . Shortness of Breath - HPI Summary HPI Summary: The patient is an 82 year old female brought in by ambulance with shortness of breath that began last night. The patient has a history of lung cancer with metastases and COPD. She is being seen by Dr. Polanco. The patient denies shortness of breath and chest pain. - History of Current Complaint Chief Complaint: EDShortnessOfBreath Time Seen by Provider: 12/25/17 09:27 Hx Obtained From: Patient Onset/Duration: Lasting Days - 1, Still Present Timing: Constant Current Severity: Moderate Dyspnea At: Rest Aggrevating Factors: Nothing Alleviating Factors: Nothing Associated Signs & Symptoms: Negative - cough, chest pain - Allergy/Home Medications Allergies/Adverse Reactions: Allergies Allergy/AdvReac Type Severity Reaction Status Date / Time No Known Allergies Allergy Verified 12/17/17 12:03 Home Medications: Home Medications Rivaroxaban TAB(*) [Xarelto 10 mg (*)] 20 mg PO DAILY 12/25/17 [History Confirmed 12/25/17] PMH/Surg Hx/FS Hx/Imm Hx Endocrine/Hematology History: Reports: Hx Thyroid Disease Denies: Hx Diabetes Cardiovascular History: Reports: Hx Atrial Fibrillation, Hx Hypertension - controlled with meds Denies: Hx Pacemaker/ICD Comment Only: Other Cardiovascular Problems/Disorders - AFib Respiratory History: Reports: Hx Chronic Obstructive Pulmonary Disease (COPD), Hx Lung Cancer GI History: Reports: Hx Jaundice - slight when had hep B - resolved History: Denies: Hx Acute Renal Failure, Hx Benign Prostatic Hyperplasia, Hx Renal Disease Musculoskeletal History: Reports: Other Musculoskeletal History - 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 Denies: Hx Arthritis, Hx Rheumatoid Arthritis Sensory History: Reports: Hx Contacts or Glasses - to read, Hx Vision Problem Denies: Hx Cataracts, Hx Legally Blind, Hx Deafness, Hx Hearing Aid, Hx Hearing Problem Opthamlomology History: Reports: Hx Contacts or Glasses - to read, Hx Vision Problem Denies: Hx Cataracts, Hx Legally Blind Neurological History: Denies: Hx CVA, Hx Dementia, Hx Developmental Delay Psychiatric History: Denies: Hx Panic Disorder - Cancer History Cancer Type, Location and Year: Lung cancer Hx Chemotherapy: No - Surgical History Surgery Procedure, Year, and Place: hip replacement 1946. left femur surgery Hx Anesthesia Reactions: No Infectious Disease History: No Infectious Disease History: Reports: Hx Hepatitis - Hepatitis b years ago - slight Denies: Traveled Outside the [place] in Last 30 Days - Family History Known Family History: Positive: Diabetes Negative: Cardiac Disease, Hypertension, Renal Disease, Respiratory Disease, Seizure Disorder, Blood Disorder - Social History Alcohol Use: None Alcohol Amount: celebration Substance Use Type: Reports: None Smoking Status (MU): Former Smoker Amount Used/How Often: smoked for 30-40years 1ppd Review of Systems Negative: Fever Negative: Chest Pain Positive: Shortness Of Breath. Negative: Cough All Other Systems Reviewed And Are Negative: Yes Physical Exam - Summary Physical Exam Summary: VITAL SIGNS: Reviewed. GENERAL: Patient is a well-developed and nourished female who is lying comfortable in the stretcher. Patient is not in any acute respiratory distress. HEAD AND FACE: No signs of trauma. No ecchymosis, hematomas or skull depressions. No sinus tenderness. EYES: PERRLA, EOMI x 2, No injected conjunctiva, no nystagmus. EARS: Hearing grossly intact. Ear canals and tympanic membranes are within normal limits. MOUTH: Oropharynx within normal limits. NECK: Supple, trachea is midline, no adenopathy, no JVD, no carotid bruit, no c- spine tenderness, neck with full ROM. CHEST: Symmetric, no tenderness at palpation LUNGS: There are decreased breath sounds bilaterally. CVS: Regular rate and rhythm, S1 and S2 present, no murmurs or gallops appreciated. ABDOMEN: Soft, non-tender. No signs of distention. No rebound no guarding, and no masses palpated. Bowel sounds are normal. EXTREMITIES: FROM in all major joints, no edema, no cyanosis or clubbing. NEURO: Alert and oriented x 3. No acute neurological deficits. Speech is normal and follows commands. SKIN: Dry and warm Triage Information Reviewed: Yes Vital Signs On Initial Exam: Initial Vitals Temp Pulse Resp BP Pulse Ox 97.4 F 84 20 129/78 96 12/25/17 09:31 12/25/17 09:31 12/25/17 09:31 12/25/17 09:31 12/25/17 09:31 Vital Signs Reviewed: Yes Diagnostics - Vital Signs Vital Signs Temp Pulse Resp BP Pulse Ox 12/25/17 09:31 97.4 F 84 20 129/78 96 - Laboratory Result Diagrams: 12/25/17 09:45 12/25/17 09:45 Lab Statement: Any lab studies that have been ordered have been reviewed, and results considered in the medical decision making process. - Radiology CXR Xray Interpretation: No Acute Changes - 1. Previously documented LEFT hilar mass with extension into the LEFT lower lobe. Postobstructive pneumonitis at the superior segment of the LEFT lower lobe should be considered. 2. Stigmata of chronic obstructive pulmonary disease and emphysema. Dr. Szymanski has reviewed this report. Radiology Interpretation Completed By: Radiologist - EKG 09:43 Cardiac Rate: Tachycardia EKG Rhythm: Atrial Fibrillation - at 102 BPM EKG Interpretation: ST depressions in V4-V6. Course/Dx - Course Assessment/Plan: The patient is an 82 year old female brought in by ambulance with shortness of breath that began last night. The patient has a history of lung cancer with metastases and COPD. She is being seen by Dr. Polanco. The patient denies shortness of breath and chest pain. Test results are without significant abnormality except CRP 6.37. ABG shows a pH of 7.46, pCO2 of 48, pO2 of 75, and O2Sat of 97.5. CXR shows 1. Previously documented LEFT hilar mass with extension into the LEFT lower lobe. Postobstructive pneumonitis at the superior segment of the LEFT lower lobe should be considered. 2. Stigmata of chronic obstructive pulmonary disease and emphysema. Because of the patient s pneumonitis, I discussed with Dr. Polanco and Zack, and they agree that the patient should be treated by antibiotics. The patient was given Levaquin. Because the patient was not desatting, the patient was going to be discharged; however, the family members disagreed. I consulted again with Dr. Dixon, who will admit the patient. The patient is hemodynamically stable and alert and oriented x3. - Diagnoses Provider Diagnoses: Pneumonitis - Physician Notifications Discussed Care of Patient With: Brittany Dixon Time Discussed With Above Provider: 10:38 Instructed by Provider To: Other - Dr. Dixon, oncology, says if the patient is stable and does not desat, then she can be discharged home. However, if the patient does desat, then she needs to be admitted. I spoke with Dr. Polanco, oncology, at 10:38. He agrees with Dr. Dixon. I consulted again with Dr. Best at 12:23, and she admits the patient. Discharge - Discharge Plan Condition: Fair Disposition: ADMITTED TO [facility] Prescriptions: Levofloxacin TAB* [Levaquin TAB*] 750 mg PO DAILY #10 tab Patient Education Materials: Pneumonitis (ED) Referrals: Denise Ro NP [Primary Care Provider] - 3 Days Additional Instructions: Follow up with your primary care provider in three days. Return to the emergency department for any new or worsening symptoms. The documentation as recorded by the Jazzmine amador Thomas accurately reflects the service I personally performed and the decisions made by me, Junior Szymanski MD.
[2017-12-27] MEDS: Levofloxacin TAB* 500 MG PO SCH (08:34)
== END 2017-12-27 08:40 | disposition hospice, home (50) | DRG 194 ==
LOC: ED 09:25 → MED 13:25 → OBSVTOIN 12-26 15:00
PROVIDERS: ADMIT Internal Medicine Hematology & Oncology; ATTEND Internal Medicine Hematology & Oncology
DX: J18.8 Other pneumonia, unspecified organism (principal); J44.0 Chronic obstructive pulmonary disease with (acute) lower respiratory infection; C77.0 Secondary and unspecified malignant neoplasm of lymph nodes of head, face and neck; I48.91 Unspecified atrial fibrillation; E86.0 Dehydration; C34.12 Malignant neoplasm of upper lobe, left bronchus or lung; E03.9 Hypothyroidism, unspecified; E78.5 Hyperlipidemia, unspecified; F03.90 Unspecified dementia, unspecified severity, without behavioral disturbance, psychotic disturbance, mood disturbance, and anxiety; I10 Essential (primary) hypertension; Z66 Do not resuscitate; Z96.642 Presence of left artificial hip joint; R62.7 Adult failure to thrive; Z83.3 Family history of diabetes mellitus; Z86.73 Personal history of transient ischemic attack (TIA), and cerebral infarction without residual deficits; Z86.19 Personal history of other infectious and parasitic diseases; Z87.891 Personal history of nicotine dependence
CPT/HCPCS: 36415; 36600; 71046; 80053; 81003; 82550; 82553; 82803; 83605; 83880; 84134; 84484; 85025; 85730; 86140; 87040; 87502; 93005; 96365; 96366; 99219; 99239; 99284; A9270-GY; G0378